=== PATIENT | female | born 1950 | race Caucasian/White ===

== ENCOUNTER 2020-10-09 09:36 | Outpatient (REF) | payer MEDICARE, SELFPAY ==
--- NOTE | 2020-10-09 16:10 | MHC.AU.AHA ---
Adult Audiological Evaluation Date of Visit: 10/09/20 Reason for Appointment: Audiological re-evaluation due to concern for decreased hearing. Patient reports that she's having more difficulty hearing and understanding speech. She often asks for repetition and notes that her family gets frustrated when she doesn't hear them. She was previously seen here in 2015 and diagnosed with hearing loss bilaterally. She was issued binaural hearing aids, and she stated that she wore then for a while, but hasn't worn them in several years. She notes that they did not work well for her and she found them bothersome. She is interested in pursuing new hearing aids. [place] [facility] [place] Mild dropping to severe sensorineural hearing loss in both ears. 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[employer] Model: [employer]o V50-10 Serial Number: [id number] Battery Size: 10 Warranty: Dispensed By: [facility] Date of Fittin10/17/2014 Otoscopy: Right Ear: Unremarkable Left Ear: Unremarkable Tympanometry: Tympanometry performed due to: To assess integrity of the middle ear system Right Ear: Normal Middle Ear System (Type A) Left Ear: Normal Middle Ear System (Type A) Hearing Evaluation: Transducer(s) Used: Insert Earphones, Bone Conduction Method: Conventional Audiometry Stimuli Used: Pure Tones Right Ear: Description of Hearing: Moderate sloping to severe sensorineural hearing loss from 250-8000 Hz. Left Ear: Description of Hearing: Mild sloping to moderately-severe sensorineural hearing loss from 250-8000 Hz. Speech Recognition Threshold (SRT): Method Used: Monitored Live Voice Stimuli Used: Spondee Words Right Ear: 45 dBHL Left Ear: 45 dBHL Word Discrimination: Method: Recorded Lists Word Lists Used: NU-6 Right Ear: 80% at 85 dBHL Left Ear: 96% at 85 dBHL Comparison: Compared to the most recent evaluation: Thresholds have decreased bilaterally. Recommendations: Audiological re-evaluation in one year. Trial with amplification is recommended. Discussed hearing aid benefits and process of using her insurance benefits. Advised her that we are not in her health insurance company's network for hearing aids. Recommended that she contact her health insurance company to find out where she can use her benefits. She was welcomed to return to further discuss hearing aids if she decides to pay out of pocket or if her insurance company offers a reimbursement when she pays up front for hearing aids. Ms. Naylor decided to donate her previous hearing aids to our clinic today, as she states she will never use them. Diagnosis: Primary Diagnosis: H90.3 Bilateral Sensorineural Hearing Loss Services Performed: Comprehensive Audiological Evaluation (CPT 95327) Tympanometry (CPT 04616) Signature: Provider: Sheron Blankenship, CCC-A
== END 2020-10-09 09:37 | disposition home or self-care (01) ==
LOC: HO.SH 09:36
PROVIDERS: PCP Internal Medicine; Visit Provider Internal Medicine
DX: H91.90 Unspecified hearing loss, unspecified ear (principal)
CPT/HCPCS: 92557; 92567

== ENCOUNTER 2021-02-22 07:11 | Outpatient (REF) | payer MEDICARE, SELFPAY ==
[2021-02-22 11:55] LABS: Hematocrit 41.7 % (37.0-47.0); Hemoglobin 13.6 g/dl (12.0-16.0); Mean Corpuscular HGB Conc 32.6 g/dl (31.0-35.0); Mean Corpuscular Hemoglobin 30.6 pg (27.0-33.0); Mean Corpuscular Volume 93.7 fL (80.0-98.0); Platelet Count 186 X10*3/uL (160-400); Red Blood Count 4.45 X10*6/uL (4.20-5.50); Red Cell Distribution Width 13.1 % (11.0-16.0); White Blood Count 4.3 X10*3/uL (4.8-10.8)
[2021-02-22 12:21] LABS: Alanine Aminotransferase 25 U/L (0-31); Albumin Level 4.1 g/dL (3.5-5.0); Alkaline Phosphatase 80 U/L (39-117); Anion Gap 12 (12-20); Aspartate Amino Transferase 24 U/L (5-31); Bilirubin Total 0.7 mg/dL (0.0-1.0); Blood Urea Nitrogen 12 mg/dL (9-16); Calcium 9.6 mg/dL (8.4-10.2); Carbon Dioxide 27 mmol/L (22-29); Chloride 107 mmol/L (96-108); Cholesterol 162 mg/dL; Estimated Glomerular Filt Rate > 60; Glucose Fasting 100 mg/dL (60-99); HDL Cholesterol 55 mg/dL; LDL Cholesterol Calculated 88 mg/dl; Potassium 4.2 mmol/L (3.3-5.1); Sodium 142 mmol/L (135-145); Total Protein 7.3 g/dL (6.5-8.0); Triglycerides 95 mg/dL
[2021-02-28 14:36] LABS: Vitamin D 25-OH, D2 <4 ng/mL; Vitamin D 25-OH, D3 32 ng/mL; Vitamin D 25-OH, Total 32 ng/mL (30-100)
== END 2021-02-22 07:12 | disposition home or self-care (01) ==
LOC: HO.HMGCLDS 07:11
PROVIDERS: PCP Internal Medicine; Visit Provider Internal Medicine
DX: Z00.00 Encounter for general adult medical examination without abnormal findings (principal); E78.5 Hyperlipidemia, unspecified; K21.9 Gastro-esophageal reflux disease without esophagitis
CPT/HCPCS: 36415; 80053; 80061; 82306; 84443; 85027

== ENCOUNTER 2021-07-16 11:40 | Outpatient (REF) | payer MEDICARE, SELFPAY ==
--- NOTE | ~2021-07-16 | MM_ITS ---
EXAMINATION: MM SCREENING DIGITAL BREAST TOMOSYNTHESIS, BILATERAL CLINICAL INFORMATION: Screening. Asymptomatic. The lifetime risk of breast cancer based on the Tyrer-Cuzick Model is 8.5%. COMPARISON: Mammography: December 10, 2018 and September 17, 2016 TECHNIQUE: Digital breast tomosynthesis is performed in both the craniocaudal and mediolateral oblique views along with computer-aided detection (CAD). Synthesized 2D images are generated from the tomosynthesis. FINDINGS: The breasts are heterogeneously dense, which may obscure small masses (ACR BI-RADS breast composition Category c). There are no significant masses, abnormal calcifications, or other abnormalities. MM/MM tomosynthesis screening BI IMPRESSION: There are no significant changes from prior study. ASSESSMENT: BI-RADS 1: Negative RECOMMENDATION: Routine annual mammography screening. This patient's information was entered into a reminder system with a target due date for their next mammogram.
== END 2021-07-16 11:41 | disposition home or self-care (01) ==
LOC: HO.MAMMO 11:40
PROVIDERS: PCP Internal Medicine; Visit Provider Internal Medicine
DX: Z12.31 Encounter for screening mammogram for malignant neoplasm of breast (principal)
CPT/HCPCS: 77063; 77067

== ENCOUNTER 2022-03-04 08:04 | Outpatient (REF) | payer MEDICARE, SELFPAY ==
[2022-03-04 11:40] LABS: MANUAL DIFF FLAG NO
[2022-03-04 11:57] LABS: Basophils Absolute Auto 0.1 X10*3/uL (0.0-0.2); Basophils Percent Auto 1.1 % (0-2); Eosinophils Absolute Auto 0.2 X10*3/uL (0.0-0.4); Hematocrit 41.6 % (37.0-47.0); Hemoglobin 13.4 g/dl (12.0-16.0); Imm Gran Abs Auto 0.02 X10*3/uL (0.00-0.03); Imm Gran Pct Auto 0.4 % (0.0-0.4); Lymphocytes Percent Auto 21.1 % (20-40); Mean Corpuscular HGB Conc 32.2 g/dl (31.0-35.0); Mean Corpuscular Hemoglobin 29.9 pg (27.0-33.0); Mean Corpuscular Volume 92.9 fL (80.0-98.0); Mean Platelet Volume 12.6 fL (9.4-12.3); Monocytes Absolute Auto 0.3 X10*3/uL (0.1-1.2); Monocytes Percent Auto 6.8 % (2-11); Neutrophils Absolute Auto 3.2 x10*3/uL (2.0-8.3); Neutrophils Percent Auto 66.6 % (45-73); Platelet Count 191 X10*3/uL (160-400); Red Blood Count 4.48 X10*6/uL (4.20-5.50); White Blood Count 4.7 X10*3/uL (4.8-10.8)
[2022-03-04 12:36] LABS: Alanine Aminotransferase 38 U/L (0-31); Albumin Level 4.1 g/dL (3.5-5.0); Alkaline Phosphatase 99 U/L (39-117); Anion Gap 12 (12-20); Aspartate Amino Transferase 34 U/L (5-31); Bilirubin Total 0.4 mg/dL (0.0-1.0); Blood Urea Nitrogen 12 mg/dL (9-16); Calcium 9.1 mg/dL (8.4-10.2); Carbon Dioxide 26 mmol/L (22-29); Chloride 108 mmol/L (96-108); Cholesterol 241 mg/dL; Estimated Glomerular Filt Rate > 60; Glucose Fasting 95 mg/dL (60-99); HDL Cholesterol 59 mg/dL; LDL Cholesterol Calculated 158 mg/dl; Sodium 142 mmol/L (135-145); Triglycerides 122 mg/dL
[2022-03-04 12:42] LABS: TSH reflex Free T4 2.23 uIU/mL (0.32-4.0); Vitamin D 25-OH Total 34.8 ng/mL (>30)
== END 2022-03-04 08:05 | disposition home or self-care (01) ==
LOC: HO.HMGCLDS 08:04
PROVIDERS: PCP Internal Medicine; Visit Provider Internal Medicine
DX: Z00.00 Encounter for general adult medical examination without abnormal findings (principal); E78.5 Hyperlipidemia, unspecified
CPT/HCPCS: 36415; 80053; 80061; 82306; 84443; 85025

== ENCOUNTER 2022-05-27 07:50 | Outpatient (REF) | payer MEDICARE, SELFPAY ==
[2022-05-27 12:27] LABS: Alanine Aminotransferase 27 U/L (0-31); Albumin Level 4.3 g/dL (3.5-5.0); Alkaline Phosphatase 78 U/L (39-117); Anion Gap 13 (12-20); Aspartate Amino Transferase 24 U/L (5-31); Bilirubin Total 0.7 mg/dL (0.0-1.0); Blood Urea Nitrogen 15 mg/dL (9-16); Calcium 9.3 mg/dL (8.4-10.2); Carbon Dioxide 26 mmol/L (22-29); Chloride 108 mmol/L (96-108); Cholesterol 160 mg/dL; Estimated Glomerular Filt Rate > 60; Glucose Fasting 101 mg/dL (60-99); HDL Cholesterol 55 mg/dL; LDL Cholesterol Calculated 86 mg/dl; Potassium 4.3 mmol/L (3.3-5.1); Sodium 143 mmol/L (135-145); Triglycerides 98 mg/dL
== END 2022-05-27 07:51 | disposition home or self-care (01) ==
LOC: HO.HMGCLDS 07:50
PROVIDERS: PCP Internal Medicine; Visit Provider Internal Medicine
DX: E78.5 Hyperlipidemia, unspecified (principal)
CPT/HCPCS: 36415; 80053; 80061

== ENCOUNTER 2022-07-31 10:50 | Outpatient (REF) | payer MEDICARE, SELFPAY ==
--- NOTE | ~2022-07-31 | MM_ITS ---
EXAMINATION: MM SCREENING DIGITAL BREAST TOMOSYNTHESIS, BILATERAL CLINICAL INFORMATION: Screening. Asymptomatic. Family history breast cancer, sister. The lifetime risk of breast cancer based on the Tyrer-Cuzick Model is 7%. COMPARISON: Mammography: 07/16/2021; outside exams 12/10/2018, 09/17/2016 ([place]) TECHNIQUE: Digital breast tomosynthesis is performed in both the craniocaudal and mediolateral oblique views along with computer-aided detection (CAD). Synthesized 2D images are generated from the tomosynthesis. FINDINGS: The breasts are heterogeneously dense, which may obscure small masses (ACR BI-RADS breast composition Category c). Breast tissue composition borders on average fibroglandular. There are no significant masses, abnormal calcifications, or other abnormalities. Parenchymal pattern is similar to prior studies. There is no developing density or architectural abnormality. There is biopsy clip marker central upper outer left breast. The axilla and skin contours are unremarkable. No significant changes. MM/MM tomosynthesis screening BI IMPRESSION: No mammographic evidence of malignancy. ASSESSMENT: BI-RADS 1: Negative RECOMMENDATION: Routine annual mammography screening. This patient's information was entered into a reminder system with a target due date for their next mammogram.
== END 2022-07-31 10:51 | disposition home or self-care (01) ==
LOC: HO.MAMMO 10:50
PROVIDERS: PCP Internal Medicine; Visit Provider Internal Medicine
DX: Z12.31 Encounter for screening mammogram for malignant neoplasm of breast (principal)
CPT/HCPCS: 77063; 77067

== ENCOUNTER 2022-12-01 09:43 | Outpatient (AMB) | payer MEDICARE, SELFPAY ==
[2022-12-01 10:55] VITALS: BP 118/60; PULSE 75; TEMP 36.2; O2SAT 96; BMI 23.1
--- NOTE | 2022-12-01 10:55 | AM.OFFWIN_ITS ---
Intake Vital Signs 12/01/22 10:55 Height 5 ft 5 in Weight 139 lb BMI 23.1 BP 118/60 Blood Pressure Location Rt brachial Position Sitting Pulse 75 Pulse Source Pulse Oximeter Temp 97.2 F Temp Source Temporal Artery Scan Pulse Oximetry (%) 96 Oxygen Delivery Method Room Air Intake Visit Reasons: EP, head congestion (masked) Intake Note: pt is here for c/o head congestion Patient Tobacco Use Status: Never used Tobacco Allergies Sulfa (Sulfonamide Antibiotics) Allergy (Intermediate, Verified 12/01/22 10:56) rash/hives Medication List - Last Reconciled 12/01/22 by Celestino Escalante MD atorvastatin 20 mg PO DAILY colestipol 1 g PO DAILY lorazepam 0.5 mg PO DAILY PRN omeprazole 20 mg PO DAILY Do you need a note to return to daycare/school/sports/work: Yes HPI EP, head congestion (masked) HPI Details Patient presents for a sick visit. Reporting symptoms of sinus congestion, sore throat and difficulty swallowing. Low-grade fever. No family member is sick. No recent travel. Patient reports symptoms of malaise and fatigue. [facility] Medical History (Updated 02/25/22 @ 08:41 by Rossana Flower MD) GERD (gastroesophageal reflux disease) Hyperlipidemia Annual physical exam Dysplastic nevi Surgical History Hx of cholecystectomy Social History Household Members Other:: , retired, exercise daily, well balanced, Housing: Apartment Patient Tobacco Use Status: Never used Tobacco e-Cigarette/Vaping Use: Never Used Second Hand Smoke Exposure: No Current occupational status: retired Cognitive needs: No Hearing needs: Yes Vision needs: Yes Physical Exam Vital Signs: Last Vital Signs Temp 97.2 F 12/01/22 10:55 Pulse 75 12/01/22 10:55 BP 118/60 12/01/22 10:55 Pulse Ox 96 12/01/22 10:55 Oxygen Delivery Method Room Air 12/01/22 10:55 BMI result Body Mass Index 23.1 Const General: cooperative and healthy appearing Nutritional Appearance: well nourished Orientation/consciousness: patient oriented x3 Limitations: no limitations HEENT Head: Yes normal to inspection Eyes General: appearance normal, both eyes and all related structures Neck Neck: Yes normal visual inspection Chest Chest palpation & inspection: normal palpation of entire chest wall Resp Effort & Inspection: normal respiratory effort Neuro General: patient oriented x3 Assessment & Plan Assessment & Plan (1) Upper respiratory tract infection: Code(s): J06.9 - Acute upper respiratory infection, unspecified Plan: Antibiotics ordered. Increase fluid intake. Tylenol for aches and pains. If symptoms worsen, follow-up here for a recheck. Coding Level of Care Code Est Pt Level 3 (24267) Diagnoses Upper respiratory tract infection J06.9
== END 2022-12-01 11:47 | disposition home or self-care (01) ==
PROVIDERS: PCP Internal Medicine; Visit Provider Internal Medicine
DX: J06.9 Acute upper respiratory infection, unspecified (principal)
CPT/HCPCS: 99213

== ENCOUNTER 2022-12-11 11:36 | Outpatient (AMB) | payer MEDICARE, SELFPAY ==
--- NOTE | 2022-12-11 11:40 | MHC.PC.OV ---
Vital Signs 12/11/22 11:41 Height 5 ft 5 in Weight 140 lb BMI 23.3 BP 136/70 Blood Pressure Location Lt brachial Position Sitting Pulse 69 Pulse Source Pulse Oximeter Pulse Oximetry (%) 96 Oxygen Delivery Method Room Air Intake Visit Reasons: Followup ear blocked Intake Note: Pt is here today for a sick visit. Pt c/o noise in her L ear and feels like she has fluid in it. Pt also states that she would like doctor to look at her spots on her face. Allergies Sulfa (Sulfonamide Antibiotics) Allergy (Intermediate, Verified 12/11/22 11:43) rash/hives Medication List - Last Reconciled 12/11/22 by Rossnaa Flower MD atorvastatin 20 mg PO DAILY colestipol 1 g PO DAILY lorazepam 0.5 mg PO DAILY PRN omeprazole 20 mg PO DAILY Tobacco use date assessed: 02/25/22 Dental Screening Dental Screen Date: 12/11/22 Did you have a dental visit in the last 12 months?: Yes Did you have a dental problem in the last 6 months where you did not have access to dental care?: No Was dental information given to patient?: Patient has dentist HPI Followup ear blocked HPI Details Pt c/o persistent L ear blocked and sinus congestion for 4 weeks. Pt took Z irish last week without relief. Patient denies fever chills or cough facial pain. She tried antihistamine for 3 days without improvement. [facility] Medical History (Updated 12/11/22 @ 12:21 by Rossana Flower MD) GERD (gastroesophageal reflux disease) Hyperlipidemia Annual physical exam Dysplastic nevi Surgical History Hx of cholecystectomy Social History Household Members Other:: , retired, exercise daily, well balanced, Housing: Apartment Patient Tobacco Use Status: Never used Tobacco e-Cigarette/Vaping Use: Never Used Second Hand Smoke Exposure: No Current occupational status: retired Cognitive needs: No Hearing needs: Yes Vision needs: Yes Questionnaire Thrive Questionnaire Date Thrive assessed: 02/25/22 GEMA-7 AMB Questionnaire GEMA-7 Date GEMA - 7 assessed: 02/25/22 Source: Developed by Drs. Isidro Chaudhari, Lucia BJez Rowe and colleagues, with an educational krystina from [employer]. Review of Systems Const All systems reviewed & are unremarkable except as noted in HPI and below Eyes Reports no additional complaints ENT Reports no additional complaints Card Reports no additional complaints Resp Reports no additional complaints GI Reports no additional complaints Physical exam (Primary Care) Vital Signs: Last Vital Signs Pulse 69 12/11/22 11:41 BP 136/70 12/11/22 11:41 Pulse Ox 96 12/11/22 11:41 Oxygen Delivery Method Room Air 12/11/22 11:41 BMI result Body Mass Index 23.3 Tobacco/Smoking Status: Tobacco use Status Tobacco use date assessed 02/25/22 12/11/22 11:47 Patient Tobacco Use Status Never used Tobacco 12/11/22 11:47 e-Cigarette/Vaping Use Never Used 12/11/22 11:47 Thrive Assessment: Date of Thrive Assessment Date Thrive assessed 02/25/22 12/11/22 11:47 Const General: no acute distress HENMT Head: Yes normal to inspection Ears: TM's normal bilaterally General nose exam: Normal external nose present, Abnormal mucous membranes and turbinates present erythematous and Nasal discharge present clear Face and sinus: Yes normal facial exam and No sinus tenderness Mouth: Normal oral and palatal mucosa present Throat: Yes postnasal drainage Eyes General: appearance normal, both eyes and all related structures Neck Neck: Yes no lymphadenopathy and Yes supple Resp Effort & Inspection: normal respiratory effort Auscultation: clear to auscultation bilaterally Cardio Rhythm: regular rhythm Heart sounds: S1 normal heart sound present and S2 normal heart sound present Assessment and Plan Assessment & Plan (1) Hyperlipidemia: Comment: Continue statin Code(s): E78.5 - Hyperlipidemia, unspecified (2) Annual physical exam: Code(s): Z00.00 - Encounter for general adult medical examination without abnormal findings (3) Serous otitis media: Code(s): H65.90 - Unspecified nonsuppurative otitis media, unspecified ear Plan: Patient was advised to restart antihistamine, use saline nasal spray and prednisone 20 mg for 5 days is prescribed Orders: Orders Comprehensive [place]. Panel Fast 3 Months E78.5 - Hyperlipidemia, unspecified, Z00.00 - Encounter for general adult medical examination without abnormal findings Lipid Panel 3 Months E78.5 - Hyperlipidemia, unspecified, Z00.00 - Encounter for general adult medical examination without abnormal findings TSH reflex Free T4 3 Months E78.5 - Hyperlipidemia, unspecified, Z00.00 - Encounter for general adult medical examination without abnormal findings Complete Blood Count Auto Diff 3 Months E78.5 - Hyperlipidemia, unspecified, Z00.00 - Encounter for general adult medical examination without abnormal findings Medications: New prednisone 20 mg PO DAILY 5 tabs 0RF Refilled lorazepam 0.5 mg PO DAILY PRN 10 tabs 0RF anxiety Coding Level of Care Code Est Pt Level 3 (74320) Diagnoses Hyperlipidemia E78.5 Annual physical exam Z00.00 Serous otitis media H65.90
[2022-12-11 11:41] VITALS: BP 136/70; PULSE 69; O2SAT 96; BMI 23.3
== END 2022-12-11 12:25 | disposition home or self-care (01) ==
PROVIDERS: PCP Internal Medicine; Visit Provider Internal Medicine
DX: E78.5 Hyperlipidemia, unspecified (principal); Z00.00 Encounter for general adult medical examination without abnormal findings; H65.90 Unspecified nonsuppurative otitis media, unspecified ear
CPT/HCPCS: 99213

== ENCOUNTER 2023-02-10 07:27 | Outpatient (REF) | payer MEDICARE, SELFPAY ==
[2023-02-10 11:21] LABS: MANUAL DIFF FLAG NO
[2023-02-10 11:23] LABS: Basophils Absolute Auto 0.1 X10*3/uL (0.0-0.2); Basophils Percent Auto 1.1 % (0-2); Eosinophils Absolute Auto 0.1 X10*3/uL (0.0-0.4); Eosinophils Percent Auto 2.2 % (0-4); Hematocrit 41.2 % (37.0-47.0); Hemoglobin 13.4 g/dl (12.0-16.0); Imm Gran Abs Auto 0.01 X10*3/uL (0.00-0.03); Imm Gran Pct Auto 0.2 % (0.0-0.4); Lymphocytes Absolute Auto 1.4 X10*3/uL (1.2-4.9); Lymphocytes Percent Auto 31.1 % (20-40); Mean Corpuscular HGB Conc 32.5 g/dl (31.0-35.0); Mean Corpuscular Hemoglobin 30.5 pg (27.0-33.0); Mean Corpuscular Volume 93.8 fL (80.0-98.0); Mean Platelet Volume 12.8 fL (9.4-12.3); Monocytes Absolute Auto 0.4 X10*3/uL (0.1-1.2); Neutrophils Absolute Auto 2.6 x10*3/uL (2.0-8.3); Neutrophils Percent Auto 56.4 % (45-73); Platelet Count 193 X10*3/uL (160-400); Red Blood Count 4.39 X10*6/uL (4.20-5.50); Red Cell Distribution Width 13.7 % (11.0-16.0); White Blood Count 4.6 X10*3/uL (4.8-10.8)
[2023-02-10 12:29] LABS: Alanine Aminotransferase 30 U/L (0-31); Albumin Level 4.1 g/dL (3.5-5.0); Alkaline Phosphatase 69 U/L (39-117); Anion Gap 13 (12-20); Aspartate Amino Transferase 25 U/L (5-31); Bilirubin Total 0.4 mg/dL (0.0-1.0); Blood Urea Nitrogen 15 mg/dL (9-16); Calcium 9.1 mg/dL (8.4-10.2); Carbon Dioxide 26 mmol/L (22-29); Chloride 108 mmol/L (96-108); Cholesterol 156 mg/dL (<200); Estimated Glomerular Filt Rate > 60; Glucose Fasting 104 mg/dL (60-99); HDL Cholesterol 59 mg/dL (>40); LDL Cholesterol Calculated 76 mg/dL (<100); Potassium 3.9 mmol/L (3.3-5.1); Sodium 143 mmol/L (135-145); Total Protein 7.1 g/dL (6.5-8.0); Triglycerides 106 mg/dL (<150)
[2023-02-10 12:36] LABS: TSH reflex Free T4 2.55 uIU/mL (0.32-4.0)
== END 2023-02-10 07:28 | disposition home or self-care (01) ==
LOC: HO.HMGCLDS 07:27
PROVIDERS: PCP Internal Medicine; Visit Provider Internal Medicine
DX: Z00.00 Encounter for general adult medical examination without abnormal findings (principal); E78.5 Hyperlipidemia, unspecified
CPT/HCPCS: 36415; 80053; 80061; 84443; 85025

== ENCOUNTER 2023-02-26 08:57 | Outpatient (AMB) | payer MEDICARE, SELFPAY ==
[2023-02-26 09:05] VITALS: BP 112/66; PULSE 64; O2SAT 98; BMI 23.3
--- NOTE | 2023-02-26 09:05 | MHC.PC.OV ---
Vital Signs 02/26/23 09:05 Height 5 ft 5 in Weight 140 lb BMI 23.3 BP 112/66 Blood Pressure Location Lt brachial Position Sitting Pulse 64 Pulse Source Pulse Oximeter Pulse Oximetry (%) 98 Oxygen Delivery Method Room Air Intake Visit Reasons: Annual PE Intake Note: Pt is here today for PE. Allergies Sulfa (Sulfonamide Antibiotics) Allergy (Intermediate, Verified 02/26/23 09:06) rash/hives Medication List - Last Reconciled 02/26/23 by Rossana Flower MD atorvastatin 20 mg PO DAILY colestipol 1 g PO DAILY lorazepam 0.5 mg PO DAILY PRN omeprazole 20 mg PO DAILY prednisone 20 mg PO DAILY Tobacco use date assessed: 02/26/23 Fall risk assessment: No Falls in past year Last assessed Fall Risk: 02/26/23 Dental Screening Dental Screen Date: 02/26/23 Did you have a dental visit in the last 12 months?: Yes Did you have a dental problem in the last 6 months where you did not have access to dental care?: No Was dental information given to patient?: Patient has dentist HPI Annual PE HPI Details Pt presents for PE. PFSH Medical History GERD (gastroesophageal reflux disease) Hyperlipidemia Annual physical exam Dysplastic nevi Surgical History Hx of cholecystectomy Social History Household Members Other:: , retired, exercise daily, well balanced, Housing: Apartment Patient Tobacco Use Status: Never used Tobacco e-Cigarette/Vaping Use: Never Used Second Hand Smoke Exposure: No Current occupational status: retired Cognitive needs: No Hearing needs: Yes Vision needs: Yes Questionnaire PHQ-9 Over the last 2 weeks, how often have you been bothered by any of the following problems? 1. Little interest or pleasure in doing things: not at all 2. Feeling down, depressed, or hopeless: not at all 3. Trouble falling or staying asleep, or sleeping too much: several days 4. Feeling tired or having little energy: several days 5. Poor appetite or overeating: not at all 6. Feeling bad about yourself - or that you are a failure or have let yourself or your family down: not at all 7. Trouble concentrating on things, such as reading the newspaper or watching television: not at all 8. Moving or speaking so slowly that other people could have noticed. Or the opposite - being so fidgety or restless that you have been moving around a lot more than usual: not at all 9. Thoughts that you would be better off or of hurting yourself in some way: not at all Total score: 2 Depression Screening Interpretation: Negative Depression Screening Done: Yes Source: Developed by Drs. Isidro Chaudhari, Lucia Burton, Jez Pan and colleagues, with an educational krystina from [employer]. Thrive Questionnaire Date Thrive assessed: 02/26/23 I am a: Patient What is your living situation today?: I have a steady place to live Within the past 12 months, did the food you bought not last and you didn't have the money to get more?: Never true Within the past 12 months, did you worry whether your food would run out before you got money to buy more?: Never true Do you have trouble paying for medicines?: No Do you have trouble getting transportation to medical appointments?: No Do you have trouble paying your heating and electricity bill?: No Do you have trouble taking care of your child, family member or friend?: No Do you have trouble with day-to-day activities such as bathing, preparing meals, shopping, managing finances, etc.?: No Are you currently unemployed and looking for a job?: No Are you interested in more education?: No Please select the resources that you would like help with: None AUDIT C Alcohol Use Questionnaire (AUDIT-C) 1. How often do you have a drink containing alcohol?: 2-4 times a month 2. How many drinks containing alcohol do you have on a typical day when you are drinking?: 1 or 2 3. How often do you have six or more drinks on one occasion?: Never Total Score: 2 GEMA-7 AMB Questionnaire GEMA-7 Date GEMA - 7 assessed: 02/26/23 Feeling nervous, anxious, or on edge: 0 = Not at all Not being able to stop or control worryin = Not at all Worrying too much about different things: 0 = Not at all Trouble relaxin = Not at all Being so restless that it is hard to sit still: 0 = Not at all Becoming easily annoyed or irritable: 0 = Not at all Feeling afraid as if something awful might happen: 0 = Not at all Total GEMA-7 score (0-4 normal; 5-9 mild; 10-14 moderate; 15-21 severe): 0 Source: Developed by Drs. Isidro Chaudhari, Lucia Burton, Jez Pan and colleagues, with an educational krystina from [employer]. Review of Systems Const All systems reviewed & are unremarkable except as noted in HPI and below Reports no additional complaints Eyes Reports no additional complaints ENT Reports no additional complaints Card Reports no additional complaints Resp Reports no additional complaints GI Reports no additional complaints Reports no additional complaints Physical exam (Primary Care) Vital Signs: Last Vital Signs Pulse 64 02/26/23 09:05 BP 112/66 02/26/23 09:05 Pulse Ox 98 02/26/23 09:05 Oxygen Delivery Method Room Air 02/26/23 09:05 BMI result Body Mass Index 23.3 Tobacco/Smoking Status: Tobacco use Status Tobacco use date assessed 02/26/23 02/26/23 09:10 Patient Tobacco Use Status Never used Tobacco 02/26/23 09:10 e-Cigarette/Vaping Use Never Used 02/26/23 09:10 PHQ-9: PHQ-9 Score PHQ-9: Total score 2 02/26/23 09:11 Depression Screening Interpretation: Negative Thrive Assessment: Date of Thrive Assessment Date Thrive assessed 02/26/23 02/26/23 09:11 Const General: no acute distress HENMT Head: Yes normal to inspection Ears: hearing grossly normal bilaterally Face and sinus: Yes normal facial exam Mouth: Normal oral and palatal mucosa present Throat: Yes posterior oropharynx normal Eyes General: appearance normal, both eyes and all related structures Neck Neck: Yes no lymphadenopathy and Yes supple Resp Effort & Inspection: normal respiratory effort Auscultation: clear to auscultation bilaterally Cardio Rhythm: regular rhythm Heart sounds: S1 normal heart sound present and S2 normal heart sound present GI Inspection: Yes normal to inspection Palpation (GI): Soft to palpation Percussion: Yes normal to percussion Auscultation: normal bowel sounds Assessment and Plan Assessment & Plan (1) Postmenopausal: Code(s): Z78.0 - Asymptomatic menopausal state Plan: check DEXA (2) Mammogram declined: Comment: 03/03 Code(s): Z53.20 - Procedure and treatment not carried out because of patient's decision for unspecified reasons (3) Hyperlipidemia: Comment: Continue statin Code(s): E78.5 - Hyperlipidemia, unspecified Plan: CONTINUE CURRENT MEDICATIONS AND LOW-CHOLESTEROL DIET Orders: Orders XR DEXA axial skeleton Today Z78.0 - Asymptomatic menopausal state Medications: Discontinued prednisone Discontinued Reason: Duplicate 20 mg PO DAILY 5 tabs 0RF Coding Level of Care Code Est Pt Prev Care >65y(96943) Diagnoses Postmenopausal Z78.0 Mammogram declined Z53.20 Hyperlipidemia E78.5
== END 2023-02-26 10:09 | disposition home or self-care (01) ==
PROVIDERS: PCP Internal Medicine; Visit Provider Internal Medicine
DX: Z00.00 Encounter for general adult medical examination without abnormal findings (principal); Z78.0 Asymptomatic menopausal state; Z53.20 Procedure and treatment not carried out because of patient's decision for unspecified reasons; E78.5 Hyperlipidemia, unspecified
CPT/HCPCS: 99397

== ENCOUNTER 2023-03-12 09:53 | Outpatient (REF) | payer MEDICARE, SELFPAY ==
--- NOTE | ~2023-03-12 | MM_ITS ---
EXAMINATION: BONE DENSITOMETRY CLINICAL INDICATION: Asymptomatic menopausal state. COMPARISON: This is the patient's baseline examination. TECHNIQUE: Using a [employer] DXA System (software version: 13.1) manufactured by [employer], dual-energy x-ray absorptiometry was performed of the lumbar spine and left hip. The images are of good technical quality. Summary results are attached. FINDINGS: LEFT FEMUR, NECK: BMD 0.716 g/cm2, Z-score -0.5, T-score -2.3, osteopenia. LEFT FEMUR, TOTAL: BMD 0.749 g/cm2, Z-score -0.4, T-score -2.1, osteopenia. AP SPINE L1-L4: BMD 0.971 g/cm2, Z-score 0.0, T-score -1.7, osteopenia. IDENTIFIED RISK FACTORS: Menopause. HISTORY OF FRACTURE: None listed. MEDICATIONS: Vitamin D. MM/XR DEXA axial skeleton IMPRESSION: 1. DIAGNOSIS: Osteopenia based on the lowest T-score value of -2.3 in the femoral neck applying World Health Organization criteria. 2. 10-YEAR FRACTURE RISK PREDICTION, FRAX: Major osteoporotic fracture (clinical spine, forearm, hip or shoulder) 13.9%. Hip fracture 3.7%. 3. Treatment Recommendations: NOF guidelines recommend consideration for treatment in postmenopausal women and men age 50 and older presenting with the following: -A hip or vertebral (clinical or morphometric) fracture. -T-score less than or equal to -2.5 at the femoral neck or spine after appropriate evaluation to exclude secondary causes. -Low bone mass at the hip or spine and a 10-year fracture probability by FRAX of greater than or equal to 3% for hip fracture or greater than or equal to 20% for major osteoporotic fracture based on the [place] adapted WHO algorithm. 4. Other Recommendations: All treatment decisions require clinical judgment and consideration of individual patient factors, including patient preferences, comorbidities, previous drug use, risk factors not captured in the FRAX model (e.g. frailty, falls, vitamin D deficiency, increased bone turnover, interval significant decline in bone density) and possible under or overestimation of fracture risk by FRAX. Additional medical evaluation for secondary cause of low bone mineral density may be appropriate. FUTURE SCAN RECOMMENDATION: People with diagnosed cases of osteoporosis or at high risk for fracture should have regular bone mineral density tests. For patients eligible for Medicare, routine testing is allowed once every 2 years. The testing frequency can be increased to one year for patients who have rapidly progressing disease, those who are receiving or discontinuing medical therapy to restore bone mass, or have additional risk factors.
== END 2023-03-12 09:54 | disposition home or self-care (01) ==
LOC: HO.MAMMO 09:53
PROVIDERS: PCP Internal Medicine; Visit Provider Internal Medicine
DX: Z13.820 Encounter for screening for osteoporosis (principal); Z78.0 Asymptomatic menopausal state
CPT/HCPCS: 77080

== ENCOUNTER 2024-02-22 07:26 | Outpatient (REF) | payer MEDICARE, SELFPAY ==
[2024-02-22 09:58] LABS: MANUAL DIFF FLAG NO
[2024-02-22 10:02] LABS: Basophils Absolute Auto 0.1 X10*3/uL (0.0-0.2); Eosinophils Absolute Auto 0.1 X10*3/uL (0.0-0.4); Eosinophils Percent Auto 1.2 % (0-4); Hematocrit 41.2 % (37.0-47.0); Hemoglobin 13.3 g/dl (12.0-16.0); Imm Gran Abs Auto 0.01 X10*3/uL (0.00-0.03); Imm Gran Pct Auto 0.2 % (0.0-0.4); Lymphocytes Absolute Auto 1.2 X10*3/uL (1.2-4.9); Lymphocytes Percent Auto 22.2 % (20-40); Mean Corpuscular HGB Conc 32.3 g/dl (31.0-35.0); Mean Corpuscular Hemoglobin 29.7 pg (27.0-33.0); Mean Platelet Volume 12.9 fL (9.4-12.3); Monocytes Absolute Auto 0.4 X10*3/uL (0.1-1.2); Monocytes Percent Auto 7.7 % (2-11); Neutrophils Absolute Auto 3.5 x10*3/uL (2.0-8.3); Neutrophils Percent Auto 67.7 % (45-73); Platelet Count 169 X10*3/uL (160-400); Red Blood Count 4.48 X10*6/uL (4.20-5.50); Red Cell Distribution Width 13.2 % (11.0-16.0); White Blood Count 5.2 X10*3/uL (4.8-10.8)
[2024-02-22 10:36] LABS: Alanine Aminotransferase 36 U/L (0-31); Albumin Level 4.1 g/dL (3.5-5.0); Alkaline Phosphatase 78 U/L (39-117); Anion Gap 10 (12-20); Aspartate Amino Transferase 29 U/L (5-31); Bilirubin Total 0.6 mg/dL (0.0-1.0); Blood Urea Nitrogen 16 mg/dL (9-16); Calcium 9.2 mg/dL (8.4-10.2); Carbon Dioxide 27 mmol/L (22-29); Chloride 108 mmol/L (96-108); Cholesterol 161 mg/dL (<200); Estimated Glomerular Filt Rate > 60; Glucose Fasting 99 mg/dL (60-99); HDL Cholesterol 57 mg/dL (>40); LDL Cholesterol Calculated 84 mg/dL (<100); Potassium 3.9 mmol/L (3.3-5.1); Sodium 141 mmol/L (135-145); Triglycerides 103 mg/dL (<150)
[2024-02-22 10:37] LABS: TSH reflex Free T4 1.66 uIU/mL (0.32-4.0)
== END 2024-02-22 07:27 | disposition home or self-care (01) ==
LOC: HO.HMGCLDS 07:26
PROVIDERS: PCP Internal Medicine; Visit Provider Internal Medicine
DX: Z00.00 Encounter for general adult medical examination without abnormal findings (principal); E78.5 Hyperlipidemia, unspecified
CPT/HCPCS: 36415; 80053; 80061; 83655; 84443; 85025

== ENCOUNTER 2024-03-03 09:58 | Outpatient (AMB) | payer MEDICARE, SELFPAY ==
--- NOTE | 2024-03-03 11:06 | A.OFFPC_ITS ---
Vital Signs 03/03/24 11:08 Height 5 ft 5 in Weight 136 lb BMI 22.6 BP 120/64 Blood Pressure Location Lt brachial Position Sitting Pulse 64 Pulse Source Pulse Oximeter Pulse Oximetry (%) 98 Oxygen Delivery Method Room Air Intake Visit Reasons: Annual PE - see comments Intake Note: Pt is here today for PE. Pt needs refill on her medications. Allergies Sulfa (Sulfonamide Antibiotics) Allergy (Intermediate, Verified 03/03/24 11:08) rash/hives Medication List - Last Reconciled 03/03/24 by Rossana Flower MD atorvastatin 20 mg PO DAILY colestipol 1 g PO DAILY lorazepam 0.5 mg PO DAILY PRN omeprazole 20 mg PO DAILY Tobacco use date assessed: 03/03/24 Fall risk assessment: No Falls in past year Last assessed Fall Risk: 03/03/24 Dental Screening Dental Screen Date: 03/03/24 Did you have a dental visit in the last 12 months?: Yes Did you have a dental problem in the last 6 months where you did not have access to dental care?: No Was dental information given to patient?: Patient has dentist HPI Annual PE - see comments HPI Details Patient presents for physical PFSH Medical History GERD (gastroesophageal reflux disease) Hyperlipidemia Annual physical exam Dysplastic nevi Surgical History Hx of cholecystectomy Family History Father No problems noted. Mother No problems noted. Social History Household Members Other:: , retired, exercise daily, well balanced, Housing: Apartment Patient Tobacco Use Status: Never used Tobacco e-Cigarette/Vaping Use: Never Used Second Hand Smoke Exposure: No service: No Current occupational status: retired Cognitive needs: No Hearing needs: Yes Vision needs: Yes Questionnaire PHQ-9 Over the last 2 weeks, how often have you been bothered by any of the following problems? 1. Little interest or pleasure in doing things: not at all 2. Feeling down, depressed, or hopeless: not at all 3. Trouble falling or staying asleep, or sleeping too much: not at all 4. Feeling tired or having little energy: not at all 5. Poor appetite or overeating: not at all 6. Feeling bad about yourself - or that you are a failure or have let yourself or your family down: not at all 7. Trouble concentrating on things, such as reading the newspaper or watching television: not at all 8. Moving or speaking so slowly that other people could have noticed. Or the opposite - being so fidgety or restless that you have been moving around a lot more than usual: not at all 9. Thoughts that you would be better off or of hurting yourself in some way: not at all Total score: 0 Depression Screening Interpretation: Negative Depression Screening Done: Yes 66867 - PHQ-9 Billing: Yes Source: Developed by Drs. Isidro Chaudhari, Lucia Burton, Jez Pan and colleagues, with an educational krystina from [employer]. Thrive Questionnaire Date Thrive assessed: 03/03/24 I am a: Patient What is your living situation today?: I have a steady place to live Within the past 12 months, did the food you bought not last and you didn't have the money to get more?: Sometimes True Within the past 12 months, did you worry whether your food would run out before you got money to buy more?: Sometimes True Do you have trouble paying for medicines?: No Do you have trouble getting transportation to medical appointments?: No Do you have trouble paying your heating and electricity bill?: No Do you have trouble taking care of your child, family member or friend?: No Do you have trouble with day-to-day activities such as bathing, preparing meals, shopping, managing finances, etc.?: No Are you currently unemployed and looking for a job?: No Are you interested in more education?: No Please select the resources that you would like help with: Food Currently or been in a relationship where the following occur: No concerns reported THRIVE Score: 2 AUDIT C Alcohol Use Questionnaire (AUDIT-C) 1. How often do you have a drink containing alcohol?: Monthly or less 2. How many drinks containing alcohol do you have on a typical day when you are drinking?: 1 or 2 3. How often do you have six or more drinks on one occasion?: Less than monthly Total Score: 2 GEMA-7 AMB Questionnaire GEMA-7 Date GEMA - 7 assessed: 03/03/24 Feeling nervous, anxious, or on edge: 1 = Several days Not being able to stop or control worryin = Several days Worrying too much about different things: 1 = Several days Trouble relaxin = Several days Being so restless that it is hard to sit still: 0 = Not at all Becoming easily annoyed or irritable: 1 = Several days Feeling afraid as if something awful might happen: 1 = Several days Total GEMA-7 score (0-4 normal; 5-9 mild; 10-14 moderate; 15-21 severe): 6 Source: Developed by Drs. Isidro Chaudhari, Lucia Burton, Jez Pan and colleagues, with an educational krystina from [employer]. GEMA-7 Assessment Billing GEMA-7 Assessment Tool: GEMA-7 Assessment 12048 Review of Systems Const All systems reviewed & are unremarkable except as noted in HPI and below Reports no additional complaints Eyes Reports no additional complaints ENT Reports no additional complaints Card Reports no additional complaints Resp Reports no additional complaints GI Reports no additional complaints Reports no additional complaints Physical exam (Primary Care) Vital Signs: Last Vital Signs Pulse 64 03/03/24 11:08 BP 120/64 03/03/24 11:08 Pulse Ox 98 03/03/24 11:08 Oxygen Delivery Method Room Air 03/03/24 11:08 BMI result Body Mass Index 22.6 Tobacco/Smoking Status: Tobacco use Status Tobacco use date assessed 03/03/24 03/03/24 11:12 Patient Tobacco Use Status Never used Tobacco 03/03/24 11:12 e-Cigarette/Vaping Use Never Used 03/03/24 11:12 PHQ-9: PHQ-9 Score PHQ-9: Total score 0 03/03/24 11:12 Depression Screening Interpretation: Negative Thrive Assessment: Date of Thrive Assessment Date Thrive assessed 03/03/24 03/03/24 11:12 Currently or been in a relationship where the following occur: No concerns reported Const General: no acute distress HENMT Head: Yes normal to inspection Ears: hearing grossly normal bilaterally Face and sinus: Yes normal facial exam Mouth: Normal oral and palatal mucosa present Eyes General: appearance normal, both eyes and all related structures Neck Neck: Yes no lymphadenopathy and Yes supple Resp Effort & Inspection: normal respiratory effort Auscultation: clear to auscultation bilaterally Cardio Rhythm: regular rhythm Heart sounds: S1 normal heart sound present and S2 normal heart sound present GI Inspection: Yes normal to inspection Palpation (GI): Soft to palpation Percussion: Yes normal to percussion Auscultation: normal bowel sounds Coding Level of Care Code Est Pt Prev Care >65y(65995) Diagnoses Colon cancer screening Z12.11 Annual physical exam Z00.00 Hyperlipidemia E78.5 Additional Codes GEMA-7 Assessment Billing - GEMA-7 Assessment Tool: GEMA-7 Assessment 31335 ([id number]) PHQ-9 - 34958 - PHQ-9 Billing: Yes ([id number]) Assessment & Plan Assessment & Plan (1) Colon cancer screening: Comment: 11/2021 negative Cologuard by insurance, 12/01 negative FIT Code(s): Z12.11 - Encounter for screening for malignant neoplasm of colon Category: Medical Plan: Negative colon cancer screening by insurance, patient declined colonoscopy (2) Annual physical exam: Code(s): Z00.00 - Encounter for general adult medical examination without abnormal findings Category: Medical Plan: Well-balanced diet regular physical activity discussed with the patient. She will schedule mammogram (3) Hyperlipidemia: Comment: Continue statin Code(s): E78.5 - Hyperlipidemia, unspecified Category: Medical Plan: Continue statin Orders: Orders Comprehensive [place]. Panel Fast 1 Year E55.9 - Vitamin D deficiency, unspecified, E78.5 - Hyperlipidemia, unspecified, Z00.00 - Encounter for general adult medical examination without abnormal findings Complete Blood Count Auto Diff 1 Year E55.9 - Vitamin D deficiency, unspecified, E78.5 - Hyperlipidemia, unspecified, Z00.00 - Encounter for general adult medical examination without abnormal findings Lipid Panel 1 Year E55.9 - Vitamin D deficiency, unspecified, E78.5 - Hyperlipidemia, unspecified, Z00.00 - Encounter for general adult medical examination without abnormal findings TSH reflex Free T4 1 Year E55.9 - Vitamin D deficiency, unspecified, E78.5 - Hyperlipidemia, unspecified, Z00.00 - Encounter for general adult medical examination without abnormal findings Vitamin D 25-OH Total 1 Year E55.9 - Vitamin D deficiency, unspecified, E78.5 - Hyperlipidemia, unspecified, Z00.00 - Encounter for general adult medical examination without abnormal findings Medications: Refilled colestipol 1 g PO DAILY 90 tabs 3RF lorazepam 0.5 mg PO DAILY PRN 10 tabs 0RF anxiety
[2024-03-03 11:08] VITALS: BP 120/64; PULSE 64; O2SAT 98; BMI 22.6
== END 2024-03-03 11:42 | disposition home or self-care (01) ==
PROVIDERS: PCP Internal Medicine; Visit Provider Internal Medicine
DX: Z12.11 Encounter for screening for malignant neoplasm of colon (principal); Z00.00 Encounter for general adult medical examination without abnormal findings; E78.5 Hyperlipidemia, unspecified

== ENCOUNTER → 2024-03-03 09:58 | Outpatient (BNVA) | payer MEDICARE, SELFPAY | PROVIDERS: PCP Internal Medicine; Visit Provider Internal Medicine | DX: Z00.00 Encounter for general adult medical examination without abnormal findings (principal); E78.5 Hyperlipidemia, unspecified | CPT/HCPCS: 96127; 99397 ==

== ENCOUNTER 2024-07-12 09:30 | Outpatient (AMB) | payer MEDICARE, SELFPAY ==
--- NOTE | 2024-07-12 09:45 | A.OFFPC_ITS ---
Vital Signs 07/12/24 09:49 Height 5 ft 5 in Weight 143 lb BMI 23.8 BP 124/70 Blood Pressure Location Lt brachial Position Sitting Respiration 18 Pulse 69 Pulse Source Pulse Oximeter Temp 98.1 F Temp Source Oral Pulse Oximetry (%) 98 Oxygen Delivery Method Room Air Intake Visit Reasons: Discuss anxiety, dizziness Intake Note: Pt is here today for a sick visit. Pt c/o dizziness. Allergies Sulfa (Sulfonamide Antibiotics) Allergy (Intermediate, Verified 07/12/24 09:59) rash/hives Medication List - Last Reconciled 07/12/24 by Rossana Flower MD atorvastatin 20 mg PO DAILY colestipol 1 g PO DAILY lorazepam 0.5 mg PO DAILY PRN omeprazole 20 mg PO DAILY Tobacco use date assessed: 07/12/24 Fall risk assessment: No Falls in past year Last assessed Fall Risk: 07/12/24 Dental Screening Dental Screen Date: 03/03/24 HPI Discuss anxiety, dizziness HPI Details Pt c/o increasing anxiety getting worse over the last few months. She denies depression insomnia change in appetite. Patient had an episode of lightheadedness lasting 2 minutes while in the started looking on the shelves. She denies associated chest pain shortness or breath palpitations headache, change in the vision, weakness or numbness in extremities PFSH Medical History GERD (gastroesophageal reflux disease) Hyperlipidemia Annual physical exam Dysplastic nevi Surgical History Hx of cholecystectomy Family History Father No problems noted. Mother No problems noted. Social History Household Members Other:: , retired, exercise daily, well balanced, Housing: Apartment Patient Tobacco Use Status: Never used Tobacco e-Cigarette/Vaping Use: Never Used Second Hand Smoke Exposure: No service: No Current occupational status: retired Cognitive needs: No Hearing needs: Yes Vision needs: Yes Questionnaire Thrive Questionnaire Date Thrive assessed: 02/26/24 I am a: Patient What is your living situation today?: I have a steady place to live Within the past 12 months, did the food you bought not last and you didn't have the money to get more?: Sometimes True Within the past 12 months, did you worry whether your food would run out before you got money to buy more?: Sometimes True Do you have trouble paying for medicines?: No Do you have trouble getting transportation to medical appointments?: No Do you have trouble paying your heating and electricity bill?: No Do you have trouble taking care of your child, family member or friend?: No Do you have trouble with day-to-day activities such as bathing, preparing meals, shopping, managing finances, etc.?: No Are you currently unemployed and looking for a job?: No Are you interested in more education?: No Please select the resources that you would like help with: Food Currently or been in a relationship where the following occur: No concerns reported THRIVE Score: 2 GEMA-7 AMB Questionnaire GEMA-7 Date GEMA - 7 assessed: 03/03/24 Source: Developed by Drs. Isidro Chaudhari, Lucia Burton, Jez Pan and colleagues, with an educational krystina from [employer]. Review of Systems Const All systems reviewed & are unremarkable except as noted in HPI and below Reports no additional complaints Eyes Reports no additional complaints ENT Reports no additional complaints Card Reports no additional complaints Resp Reports no additional complaints GI Reports no additional complaints Reports no additional complaints Musc Reports no additional complaints Physical exam (Primary Care) Vital Signs: Last Vital Signs Temp 98.1 F 07/12/24 09:49 Pulse 69 07/12/24 09:49 Resp 18 07/12/24 09:49 BP 124/70 07/12/24 09:49 Pulse Ox 98 07/12/24 09:49 Oxygen Delivery Method Room Air 07/12/24 09:49 BMI result Body Mass Index 23.8 Tobacco/Smoking Status: Tobacco use Status Tobacco use date assessed 07/12/24 07/12/24 10:00 Patient Tobacco Use Status Never used Tobacco 07/12/24 09:45 e-Cigarette/Vaping Use Never Used 07/12/24 09:45 Thrive Assessment: Date of Thrive Assessment Date Thrive assessed 02/26/24 07/12/24 09:45 Currently or been in a relationship where the following occur: No concerns reported Const General: no acute distress HENMT Head: Yes normal to inspection Ears: TM's normal bilaterally Face and sinus: Yes normal facial exam Eyes General: appearance normal, both eyes and all related structures Resp Effort & Inspection: normal respiratory effort Auscultation: clear to auscultation bilaterally Cardio Rhythm: regular rhythm Heart sounds: S1 normal heart sound present and S2 normal heart sound present Neuro Cranial nerves: Yes CN's II-XII intact bilaterally Gait exam (Neuro): Normal gait present Motor exam (neuro): 5/5 motor strength present throughout Coding Level of Care Code Est Pt Level 3 (89024) Diagnoses Anxiety F41.9 Assessment & Plan Assessment & Plan (1) Anxiety: Code(s): F41.9 - Anxiety disorder, unspecified Category: Medical Plan: For chronic anxiety patient was advised to start counseling. Zoloft 25 mg daily will be started. Mindfulness and relaxation techniques discussed with the patient. Follow-up in 1 month Medications: New sertraline (Zoloft) 25 mg PO DAILY 30 tabs 2RF
[2024-07-12 09:49] VITALS: BP 124/70; PULSE 69; RESP 18; TEMP 36.7; O2SAT 98; BMI 23.8
--- OUTSIDE RECORDS SUMMARY | 2024-07-12 10:36 | XMS_ITS | Data Portability ---
Author Organization [facility], , [facility] Address [address] [place] [address] Care Team Providers Care Christian Education Director Name Role Phone NETTA EVANS Primary Care Provider MEGAN TORRES Primary Care Provider Assessment No assessment recorded. Plan of Treatment Reminders Order Date Submit Date Provider Last Modified By Organization Details Last Modified Time Details Appointments None recorded. Lab H pylori iga Ab, serum 2014 015 [facility], [address] [place] [address], [id number], 5 06:01:14 CBC 2013 014 [facility], [address] [place] [address], [address], 4 14:52:01 thyroid stimulating hormone (TSH) 2013 014 [facility], [address] [place] [address], [address], 4 12:00:44 Referral gynecologis t referral - 62-year-old female with over the floor dysfunction , cystocele versus prolapsed uterus, please evaluate 2013 014 gamal [facility] [employer], [address] [place] [address], [address], 4 07:59:[address] referral - 62 yo F w/increased SOB w/exertion: ie: running & going up stairs, no HX of asthma or cardiac disease, no CP, has had PFT's done, please evalaute//a ppt August 11:00 am Pita 2013 014 gamal Lema MD, [address] [place] [address] [place], [address], 4 08:10:28 Procedures None recorded. Surgeries None recorded. Imaging x-ray, chest 2013 014 [facility] (Imaging), [address] [place] [address] , ALAYNA Hankins, [address], 4 12:25:36 Medication Orders omeprazole 20 mg capsule,del ayed release 2014 015 [employer] [address]14 ([employer] [facility]27), [address], [place], [id number], 5 18:00:27 Flonase Allergy Relief 50 mcg/actuati on nasal spray,suspe nsion 2014 015 [facility][id number], [address] [place], [place], [id number], 5 16:56:56 Pretty Allergy 180 mg tablet 2014 015 [facility] #65155, [address] [place], [place], [id number], 5 16:56:56 Estrace 0.01% (0.1 mg/gram) vaginal cream 2013 014 [employer] [address] ([employer] [facility]27), [address], [place], [id number], 4 10:25:14 Anusol-HC 25 mg rectal suppository 2013 014 [employer] 32491 ([facility] [address], [place], [id number], 10:25:14 Patient TargetsNo targets recorded. Patient Instructions Encounter Date Encounter Id Patient Instructions Last Modified By Organization Details Last Modified Time 05/02/2013 [id number] pulmonary function test* - dyspnea on exertion, increasing, please eval possible causes. 05/25/13 11:00 no prep. pt aware jdulude Not available 07/15/2013 08:05:43 06/15/2013 [id number] atrophic vaginitis: care instructions Not available 07/05/2013 00:05:03 hemorrhoids: car e instructions Not available 07/05/2013 00:05:03 Reason for Referral 62 yo F w/increased SOB w/ex ertion: ie: running & going up stairs, no HX of asthma or cardiac disease, no CP, has had PFT's done, please evalaute//appt August 11:00 am Pita Referring Physician: Megan Torres [facility], Encounter Date: 06/15/2013 62-year-old female with over the floor dysfunction, cystocele versus prolapsed uterus, please evaluate Referring Physician: Megan Torres [facility], Encounter Date: 09/14/2013 Results Created Date Observation Date Name Description Value Unit Range Abnormal Flag Note LastModifiedBy Organization Detail LastModifiedTime 05/03/19 14 05/02/2013 CBC WBC 3.5 K/? ? ?L 4.0-10 .0 low Not Available [address], [address], 05/02/2013 14:52:00 05/03/19 14 05/02/2013 CBC RBC 4.49 M/? ? ?L 3.93-5 .22 Not Available [address], [address], 05/02/2013 14:52:00 05/03/19 14 05/02/2013 CBC HGB 13.9 g/dL 11.2-1 5.7 Not Available [address], [address], 05/02/2013 14:52:00 05/03/19 14 05/02/2013 CBC HCT 41.9 % 34.1-4 4.9 Not Available [address], [address], 05/02/2013 14:52:00 05/03/19 14 05/02/2013 CBC MCV 93.3 ? ? ?L 79.4-9 4.8 Not Available [address], [address], 05/02/2013 14:52:00 05/03/19 14 05/02/2013 CBC MCH 31.0 pg 25.6-3 2.2 Not Available [address], [address], 05/02/2013 14:52:00 05/03/19 14 05/02/2013 CBC MCHC 33.2 g/dL 32.2-3 5.5 Not Available [address], [address], 05/02/2013 14:52:00 05/03/19 14 05/02/2013 CBC plt 192.0 K/? ? ?L 182.0- 369.0 Not Available [address], [address], 05/02/2013 14:52:00 05/03/19 14 05/02/2013 CBC MPV 12.4 9.4-12 .3 high Not Available [address], [address], 05/02/2013 14:52:00 05/03/19 14 05/02/2013 CBC neut% 52.7 % 34.0-7 1.1 Not Available [address], [address], 05/02/2013 14:52:00 05/03/19 14 05/02/2013 CBC neut# 1.8 1.6-6. 1 Not Available [address], [address], 05/02/2013 14:52:00 05/03/19 14 05/02/2013 CBC lymph % 32.4 % 19.3-5 1.7 Not Available [address], [address], 05/02/2013 14:52:00 05/03/19 14 05/02/2013 CBC lymph # 1.1 K/? ? ?L 1.2-3. 7 low Not Available [address], [address], 05/02/2013 14:52:00 05/03/19 14 05/02/2013 CBC mono% 8.9 % 4.7-12 .5 Not Available [address], [address], 05/02/2013 14:52:00 05/03/19 14 05/02/2013 CBC mono# 0.3 0.2-0. 4 Not Available [address], [address], 05/02/2013 14:52:00 05/03/19 14 05/02/2013 CBC eo% 4.9 % 0.7-5. 8 Not Available [address], [address], 05/02/2013 14:52:00 05/03/19 14 05/02/2013 CBC eo# 0.2 0.0-0. 4 Not Available [address], [address], 05/02/2013 14:52:00 05/03/19 14 05/02/2013 CBC baso% 1.1 % 0.1-1. 2 Not Available [address], [address], 05/02/2013 14:52:00 05/03/19 14 05/02/2013 CBC baso# 0.0 0.0-0. 1 low Not Available [address], [address], 05/02/2013 14:52:00 05/03/19 14 05/02/2013 CBC RDW-CV 12.8 % 11.7-1 4.4 Not Available [address], [address], 05/02/2013 14:52:00 05/03/19 14 05/03/2013 thyro id stimu latin g hormo ne (TSH) TSH 1.20 uIU/m L 0.50-6 .00 the ameri can colle ge of endoc rinol ogy and ameri can thyro id assoc iatio n recom mend goal TSH value s betwe en 1.0-2 .5 mIU/m L. Not Available [address], [address], 05/03/2013 12:00:43 05/04/19 14 05/10/2013 fecal globi n immun ochem ical test ifobt NEGATI VE negati ve Not Available [address], [address], 05/10/2013 14:41:24 05/05/19 14 05/10/2013 fecal globi n immun ochem ical test ifobt NEGATI VE negati ve Not Available [address], [address], 05/10/2013 14:41:27 05/06/19 14 05/10/2013 fecal globi n immun ochem ical test ifobt NEGATI VE negati ve Not Available [address], [address], 05/10/2013 14:41:28 10/27/19 15 10/26/2014 lipid panel , serum cholesterol 235 mg/dL <200 mg/dl Megan able 200-2 39 mg/dl Borde rline High >240 mg/dl High Not Available [address], [address], 10/26/2014 13:34:49 10/27/19 15 10/26/2014 lipid panel , serum triglyceride s 102 mg/dL <150 mg/dL Gisell l 150-1 99 mg/dL Borde rline High 200-4 99 mg/dL High >500 mg/dL Very High Not Available [address], [address], 10/26/2014 13:34:49 10/27/19 15 10/26/2014 lipid panel , serum direct HDL 60 mg/dL Not Available [address], [address], 10/26/2014 13:34:49 10/27/19 15 10/26/2014 LDL, direc t, serum direct LDL 152 mg/dL RISK CATEG ORY LDL GOAL _ CHD or CHD Risk Equiv alent s <100 mg/dl (10-y ear risk >20%) 2+ Risk Facto rs <130 mg/dl (10-y ear risk <= 20%) 0-1 Risk Facto r? <160 mg/dl ? Almos t all peopl e with 0-1 risk facto r have a 10 year risk <10%, thus 10 year risk asses ment in peopl e with 0-1 risk facto r is not ra zeferino. Not Available [address], [address], 10/26/2014 13:34:50 10/27/19 15 11/03/2014 H pylor i iga Ab, serum helicobacter pylori Ab (IgA), immunoblot NEGATI VE Effec tive Octob er 2014 Helic obact er(H) pylor i antib rene testi ng will no longe r be offer ed at [facility]. We are pleas ed to offer ACG and AGA recom sari d testi ng for ACTIV E infec tion with eithe r H. pylor i Stool Antig en (test code 29922 [X]) or H. pylor i Urea Breat h Test (1483 9[X] for adult patie nts and 08295 for pedia tric patie nts). For more infor rosangela weber on testi danika for ACTIV E H. pylor i infec tion, pleas e see http: //aure almarazque stdia gnost ics.c om/in sight s/61. Not Available [facility] [place] [facility] [address] [place], [place], [address], 11/03/2014 06:01:14 05/03/19 14 04/12/2013 exerc ise stres s test No observ ation record ed. [email or web address] [facility] [address] [place], [address], 05/03/2013 09:12:05 05/03/19 14 05/02/2013 x-ray , chest OBSERV ATION: PA AND LATERA L CHEST: Histor y: Shortn ess of breath No active lung or pleura l diseas e is seen. The heart and medias tinal contou rs appear normal . Thorac ic scolio sis convex right. Impres nickie: Normal chest radiog raph. Electr onical ly signed Readin g Physic rafa: Tip Loco MD [facility] (Imaging) [address] [place] [address] , ALAYNA Hankins, [address], 01/17/2015 04:00:20 05/10/19 14 04/12/2013 imagi ng/di agnos tic resul t No observ ation record ed. MAR Not Available 2013 09:42:55 05/10/19 14 04/12/2013 imagi ng/di agnos tic resul t No observ ation record ed. BARCODE Not Available 2013 13:24:29 06/15/19 14 05/25/2013 pulmo nary funct ion test* No observ ation record ed. [email or web address] Not Available 06/09 21:58:57 Result Notes None recorded. Problems Name Problem SNOMED Code Status Onset Date Resolution Date Notes Provider Name and Address Organization Details Recorded Time Allergic rhinitis 22146881 Active SAMINA Alves [address] [place] [address], [address] , [facility] 5 15:25:16 Varicose veins of lower extremity 21161913 Active 2001 Not Available [employer] 3 03:06:43 Nausea 509681882 Completed 200312/29/2012 Not Available [employer] 3 02:03:39 Abnormal findings on diagnostic imaging of breast 815341738 Active Not Available [facility] 3 03:06:43 Senile hyperkerat osis 069260957 Active Not Available [facility] 3 03:06:43 Right upper quadrant pain 520224854 Completed 200312/29/2012 Not Available [facility] 3 02:03:18 Generalize d anxiety disorder 65912553 Active 2007 Not Available [facility] 3 03:06:43 Insomnia 797258028 Active 2007 Not Available [facility] 3 03:06:43 Central hearing loss 59157958 Active 2001 Netta Evans MD [address] [place], [address] , [facility] 5 11:04:34 Pure hyperchole sterolemia 802147885 Active 2005 [facility] 5 11:26:35 Osteoarthr itis 669724545 Active 2006 Not Available [employer] 3 03:06:43 Disease of liver 203945394 Active 2003 Not Available [facility] 3 03:06:43 Mammograph y abnormal 202398055 Active 2003 Not Available [facility] 3 03:06:43 Pain of joint of hand 902041094 Completed 200112/29/2012 Not Available [facility] 3 02:02:43 On examinatio n - a rash Completed 12/29/2012 Not Available [facility] 3 02:00:45 Blood chemistry outside reference range 484334893 Completed 12/29/2012 Not Available [facility] 3 02:03:30 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 Procedures Surgical History Date Name Laterality Status Provider Name and Address Organization Details Recorded Time 4 Destruction of skin lesion completed eMgan Torres, RECYCLE COORDINATOR [address] [place], [address], [facility] 06/15/2013 17:21:33 1 Wart completed Мария Stewart, JAYDEN [address] [place], [address], [facility] 06/17/2010 16:26:17 0 Treatment and Advice completed Dante Swenson, PT [address] [place], [address], [facility] 09/14/2009 07:25:53 Imaging Results None recorded. Procedure Notes None recorded. Medical Equipment None Reported. Allergies Allergen ID Allergen Name Allergen Category Reaction Reaction Severity Criticality Documentation Date Start Date Code Code System Note Provider Name and Address Organization Details Recorded Time 19064 Substance with sulfonami de structure and antibacte rial mechanism of action (substanc e) medicatio n Not available Not available Not available 08/31/2009 07350 8003 SNOMED Not Available [facility] 1 06:05:41 Medications Name Sig Start Date Stop Date Status Note LastModified by Organization Details LastModified Time omeprazole 20 mg cpdr active Not Available Not Available N ot Available [facility] allergy 180 mg tabs active Not Available Not Available Not Available fluticasone propionate 50 mcg/act susp active Not Available Not Available Not Available nystatin 100,000 unit/gram topical ointment APPLY AA BID active Not Available Not Available No t Available lorazepam 0.5 mg tablet Take 1-2 tabs daily PRN anxiety/i nsomnia 2014 active Not Available Not Available Not Avai lable ciprofloxac in 0.3 % eye drops Instill 1 drop 4 times a day by ophthalmi c route for 5 days. 08/10 completed Not Available Not Available Not Available omeprazole 20 mg capsule,del ayed release Take 1 capsule every day by oral route for 30 days. active Not Available Not Available No t Available Anusol-HC 25 mg rectal suppository Insert 1 supposito ry twice a day by rectal route for 14 days. 06/29 completed Not Available Not Available Not Available fluticasone propionate 50 mcg/actuati on nasal spray,suspe nsion U 1 SPRAY IN THE NOSE BID active Not Available Not Available No t Available Estrace 0.01% (0.1 mg/gram) vaginal cream INSERT 1GRAM INTRAVAGI SIMÓN 2 TIMES PER WEEK active Not Available Not Available No t Available [employer] Allergy 180 mg tablet TK 1 T PO QD active Not Available Not Available No t Available Vitals Date Recorded Body height Body weight Body mass index (BMI) Heart rate Systolic blood pressure Diastolic blood pressure Provider Name and Address Organization Details Last Updated DateTime 4 165.1 cm 55094.9 20796 g 22.9 kg/m2 66 /min 120 mm[Hg] 74 mm[Hg] Hany Alvarado [facility] 4 10:24:59 Date Recorded Oxygen saturation Oxygen saturation in Arterial blood by Pulse oximetry Body weight Body mass index (BMI) Body height Body temperature Systolic blood pressure Diastolic blood pressure Provider Name and Address Organization Details Last Updated DateTime 5 96 % 96 % 33476.5 07628 g 22.2 kg/m2 165.1 cm 98.2 [degF] 110 mm[Hg] 66 mm[Hg] Lazaro Cottrell MA [facility] 5 15:06:39 Date Recorded Body height Body mass index (BMI) Body weight Heart rate Systolic blood pressure Diastolic blood pressure Provider Name and Address Organization Details Last Updated DateTime 4 165.1 cm 23 kg/m2 33408.7 4706 g 72 /min 128 mm[Hg] 80 mm[Hg] Liliana Delgadillo MA [facility] 4 16:13:55 Date Recorded Body height Body mass index (BMI) Body weight Systolic blood pressure Diastolic blood pressure Provider Name and Address Organization Details Last Updated DateTime 09/14/2013 165.1 cm 22.7 kg/m2 38460.61 0889 g 98 mm[Hg] 62 mm[Hg] Julianajustina Granados MA [facility] 4 10:27:35 Date Recorded Body weight Body height Body mass index (BMI) Heart rate Systolic blood pressure Diastolic blood pressure Provider Name and Address Organization Details Last Updated DateTime 5 75392.1 25089 g 165.1 cm 23.2 kg/m2 64 /min 102 mm[Hg] 70 mm[Hg] Sylvie Estevez LPN [facility] 5 16:48:40 Social History Question Answer Notes LastModified by Organizat ion Details LastModified Time Tobacco Smoking Status Never Smoker Not Available [facility] 12/26/2010 04:52:47 What Is Your Level Of Caffeine Consumption? Occasional 7 Information not available 12/26/2010 What Type Of Diet Are You Following? REGULAR mbarbeau Information not available 11/09/2012 Education 12 DBA_PATCH_ 11 7 Information not available 12/26/2010 How Many Days In The Past Year Have You Had A Heavy Drinking Consumption (4+ Female, 5+ Male)? 6 Information not available 10/24/2014 Live Alone Or With Others? Alone 7 Information not available 12/26/2010 Patient Has Health Care Proxy Signed And In Chart No 7 Information not available 12/26/2010 Marital Status Single [id number]_[id number] 7 Information not available 12/26/2010 Mosquito Repellent Used Routinely No 7 Information not available 12/26/2010 How Many Children Do You Have? 2 7 Information not available 12/26/2010 Seat Belts Used Routinely Yes 7 Information not available 12/26/2010 Smoke Alarm In Home Yes 7 Information not available 12/26/2010 General Stress Level Medium 7 Information not available 12/26/2010 Do You Use Sunscreen Routinely? No 7 Information not available 12/26/2010 Sex: Unknown Functional Status Question Answer Note LastModified by Organizat ion Details LastModified Time What is your level of alcohol consumption? 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 Family History Nothing Reported Notes:mother- cirhosis of li brittni father- prostate cancer sister- breast cancer- 50's, still alive, Medical History Condition Response Hyperlipidemia Y Gynecological HistoryNo gynecological history recorded. Obstetrics History GPAL:G 0 P 0 0 0 0 Immunizations Vaccine Type Date Status Note Provider Nam e and Address Organization Details Recorded Time Tdap 1 completed Not Available [facility] 02/26/2019 02:15:40 Hep B, unspecified formulation 1 completed Not Available [facility] 12/25/2010 05:20:34 Past Encounters Encounter ID Performer Location Encounter Start Date Encounter Closed Date Diagnosis/Indication Diagnosis SNOMED-CT Code Diagnosis ICD10 Code Diagnosis Note [id number] SAMINA Alves , [facility], [address] [place] [address] 07/29/2000 10:45:00 03/01/2008 02:02:29 [id number] FP TREATMENT NURSE [facility], OFFICE [address] [place] [address] 07/31/2000 14:00:00 03/01/2008 02:02:29 [id number] FP TREATMENT NURSE [facility], OFFICE [address] [place] [address] 08/31/2000 09:30:00 03/01/2008 02:02:29 [id number] Cheng Ashton MD , [facility], [address] [place] [address] 04/29/2001 11:15:00 03/01/2008 02:02:29 [id number] Annalisa Kellogg NP , [facility], [address] [place] [address] 11/12/2001 10:17:26 03/01/2008 02:02:29 [id number] JAYDEN Baptiste, [facility], [address] [place] [address] 02/07/2002 11:26:49 03/01/2008 02:02:29 [id number] MD SIM Gomez, [facility], [address] [place] [address] 06/28/2003 08:37:40 06/28/2003 12:04:40 [id number] [facility] - [address] [address] 07/07/2003 13:53:04 07/07/2003 13:53:36 [id number] [facility] Radiology , [facility] [address] [place] [address] 07/24/2003 08:40:06 07/25/2003 09:26:57 [id number] [facility] , [facility] [address] [place] [address] 08/29/2003 12:34:06 08/30/2003 12:18:43 [id number] [facility] Radiology , [address] [address] 08/29/2003 14:13:20 09/01/2003 08:21:13 [id number] [facility] - [address] [address] 10/17/2003 12:08:45 10/17/2003 13:08:57 [id number] MD SIM Gomez, [facility], [address] [place] [address] 10/17/2003 11:30:03 10/18/2003 13:14:30 [id number] [facility] , [facility] [address] [place] [address] 10/20/2003 07:18:05 10/20/2003 15:52:37 [id number] [facility] - [address] [address] 10/23/2003 09:51:08 10/23/2003 10:38:59 [id number] MD SIM Gomez, [facility], [address]ICE [address] [place] [address] 07/05/2004 14:23:11 07/05/2004 17:11:03 [id number] [facility] - [address] [address] 07/15/2005 13:16:43 07/15/2005 13:16:57 [id number] JAYDEN Baptiste, [facility], [address] [place] [address] 07/24/2005 13:23:08 03/01/2008 02:02:29 [id number] Flavia Mcgill MD , [facility], [address] [place] [address] 09/05/2005 10:02:22 09/05/2005 11:56:15 [id number] [facility] - [facility] [address] [place] [address] 09/12/2005 07:38:38 09/12/2005 07:38:42 [id number] [facility] - [address] [place] [address] 09/15/2005 12:54:04 09/15/2005 12:54:[id number] [address] 10/23/2005 13:18:47 03/01/2008 02:02:29 [id number] MD SIM Harvey, [facility], [address] [place] [address] 06/19/2006 13:25:47 06/19/2006 16:56:47 [id number] Flavia Mcgill MD , [facility], [address] [place] [address] 10/20/2006 10:11:07 10/26/2006 10:51:00 [id number] Donny Martins MD , [facility], [address] [place] [address] 11/12/2007 10:26:09 03/01/2008 02:02:29 [id number] [facility] , [facility] [address] [place] [address] 01/04/2008 11:02:21 01/05/2008 09:21:53 [id number] SAMINA Alves , [facility], [address] [place] [address] 08/31/2009 09:00:28 09/17/2009 12:00:43 [id number] [facility] Radiology , [facility] [address] [place] [address] 08/31/2009 09:48:31 09/03/2009 13:20:38 [id number] Dante Swenson , PT Physical Therapy, [facility] [address] [place] [address] 09/13/2009 09:29:01 09/14/2009 09:43:32 [id number] Мария Stewart NP , [facility], [address] [place] [address] 06/17/2010 13:23:45 06/19/2010 11:20:26 [id number] CHAVEZ Hays, [facility], [address] [place] [address] 10/28/2011 07:54:13 10/28/2011 09:22:32 [id number] Isidro Wallace MD Radiology , [address] [address] 11/06/2011 11:10:25 11/07/2011 09:08:22 [id number] Tip Loco MD Radiology , [address] [address] 11/20/2011 09:15:05 11/24/2011 08:02:28 [id number] Tip Loco MD Radiology , [address] [address] 11/20/2011 09:17:56 11/24/2011 08:02:36 [id number] Shaun Beverly MD Radiology , [address] [address] 2011 12:21:10 12/09/2011 08:30:11 [id number] Shaun Beverly MD Radiology , [address] [address] 2011 12:21:43 12/09/2011 08:30:49 [id number] JAYDEN Baptiste, [facility], [address] [place] [address] 08/05/2012 10:06:46 08/05/2012 11:11:11 [id number] CHAVEZ Hays , [facility], [address] [place] [address] 11/09/2012 10:47:46 11/09/2012 13:20:44 Mixed hyperlipidemia 696147872 Cholestero l is not at goal Continue to work on diet and exercise as discussed Adult [facility] examination [id number] see Risk Assessment and Lifestyle Change Counseling section above 61 yo F seen for her PHA, HX of hyperlipid emia, needs labs done,mammo gram is UTD, declines to have a colonoscop y-made aware of the risks, & declines to have a flu vaccine [id number] Sobeida Clarke MD , [facility], [address] [place] [address] 03/28/2013 09:43:47 03/28/2013 10:47:37 Dyspnea on exertion 04130554 with history of palpitatio ns and chest pressure [id number] Netta Evans MD , [facility], [address] [place] [address] 05/02/2013 09:40:30 05/03/2013 12:26:39 Dyspnea on exertion 04360610 [id number] CHAVEZ Hays , [facility], [address] [place] [address] 06/15/2013 16:04:35 07/05/2013 10:30:50 Hemorrhoids 28504743 Atrophic vaginitis 26036349 Dyspnea on exertion 85432697 Has had PFT's done, experience s increased SOB w/increase d exertion: running & going up stairs, no CP. Will refe to pulmonolog y for further eval. Agrees w/plan. Benign jing plasm of skin 44214602 Rectal lesion-cry ovac treatment done, jennifer. procedure well, RTC prn [id number] CHAVEZ Hays , [facility], [address] [place] [address] 09/14/2013 10:09:10 09/14/2013 10:51:17 Dropping sensation- pelvic floor [id number] Cystocele vs. prolapse uterus-marbella l refer to Dr. Gardner [id number] SAMINA Alves , [facility], [address] [place] [address] 05/15/2014 14:44:44 05/15/2014 15:34:16 Allergic rhinitis [id number] CHAVEZ Cruz-RALPH , [facility], [address] [place] [address] 10/24/2014 16:03:19 10/24/2014 17:06:58 Gastroesophageal reflux disease [id number] trial omeprazole . follow up in 2 -4 weeks. Health Concerns Section Related Observation LastModified by Organization Detai ls LastModified Time None Recorded Concern Status LastModified by Organization Details LastModified Time None Recorded Advance Directives Directive None Recorded Payers Encounter Date Sequence Insurance Name Policy Number Policy Webster Covered Member ID Webster Member ID Guarantor Name 05/02/2013 1 [facility] - MEDICAID ESSENTIAL (MEDICAID HMO) [id number] Janeth J J Laramie [id number] Janeth J Cyndy 06/15/2013 1 [facility] - MEDICAID ESSENTIAL (MEDICAID HMO) [id number] Janeth J J Cyndy [id number] Janeth J Laramie 09/14/2013 1 [facility] - MEDICAID ESSENTIAL (MEDICAID HMO) [id number] Janeth J J Cyndy [id number] Janeth J Laramie 05/15/2014 1 [facility] - MEDICAID ESSENTIAL (MEDICAID HMO) [id number] Janeth J J Laramie [id number] Janeth J Laramie 10/24/2014 1 [facility] - MEDICAID ESSENTIAL (MEDICAID HMO) [id number] Janeth J J Laramie [id number] Janeth J Laramie Notes Date Note Type Note Provider Name and Address Organization Details Recorded Time 05/02/2013 text/html SOB started real ly being noticeable last month; has been ongoing for quite a while . SOB with any exertion. Feels it is gradually getting worse. 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 no known asthma; Netta Evans MD [address] [place] [address], [phone], [facility] 05/06/2013 12:38:52 06/15/2013 text/html Seen for ? skin tag near her rectum which interferes w/her clothing & when going to [place]. Difficult to keep area clean, wants it removed. CHAVEZ Hays [address] [place] [address], [phone], [facility] 07/05/2013 00:05:16 09/14/2013 text/html Seen for a questionable prolapsed uterus, pain w/intercourse for several months, no vaginal bleeding. Megan Torres, RECYCLE COORDINATOR [address] [place], [phone], [facility] 09/14/2013 10:52:38 05/15/2014 text/html Onset with dry sore throat, then developed cough: dry, no phlegm, any time of day, am, pm. Head has been stuffed. Takes decongestant for a month ~3d/wk. Last dose this am. No fevers. Has had chills. Overall feels crummy, very tired. No GI upset, Eats lots of fruits and veg, little meat. Loss of energy, appetite. SAMINA Alves [address] [place] [address], [phone], [facility] 05/29/2014 14:35:08 10/24/2014 text/html pt developed severe heart burn, noted it worse in the past week, baseline nausea, has abdominal ache, eats produce, endorses bloating and cramping and diarrhea, mother and sister had hiatial hernia. pt notes heart burn x 1.5 weeks. pt has tried serg selzer, sometimes fay-o. milk. Jami Aguilar, RECYCLE COORDINATOR- [address] [place], [phone], [facility] 10/26/2014 18:00:34 OBGyn Episode No OBEpisode recorded.
== END 2024-07-12 10:33 | disposition home or self-care (01) ==
LOC: HO.HMCC 09:31
PROVIDERS: PCP Internal Medicine; Visit Provider Internal Medicine
DX: F41.9 Anxiety disorder, unspecified (principal)

== ENCOUNTER → 2024-07-12 09:30 | Outpatient (BNVA) | payer MEDICARE, SELFPAY | PROVIDERS: PCP Internal Medicine; Visit Provider Internal Medicine | DX: F41.9 Anxiety disorder, unspecified (principal) | CPT/HCPCS: 99212 ==

== ENCOUNTER 2024-08-10 09:14 | Outpatient (AMB) | payer MEDICARE, SELFPAY ==
[2024-08-10 09:19] VITALS: BP 126/76; PULSE 69; RESP 18; TEMP 36.6; O2SAT 99; BMI 23.5
--- NOTE | 2024-08-10 09:19 | A.OFFPC_ITS ---
Vital Signs 08/10/24 09:19 Height 5 ft 5 in Weight 141 lb BMI 23.5 BP 126/76 Blood Pressure Location Lt brachial Position Sitting Respiration 18 Pulse 69 Pulse Source Pulse Oximeter Temp 97.8 F Temp Source Oral Pulse Oximetry (%) 99 Oxygen Delivery Method Room Air Intake Visit Reasons: 1m follow up Intake Note: Pt is here today for 1 month follow up visit. Allergies Sulfa (Sulfonamide Antibiotics) Allergy (Intermediate, Verified 08/10/24 09:20) rash/hives Medication List - Last Reconciled 08/10/24 by Rossana Flower MD atorvastatin 20 mg PO DAILY colestipol 1 g PO DAILY lorazepam 0.5 mg PO DAILY PRN omeprazole 20 mg PO DAILY sertraline (Zoloft) 50 mg PO DAILY Tobacco use date assessed: 08/10/24 Fall risk assessment: No Falls in past year Last assessed Fall Risk: 08/10/24 Dental Screening Dental Screen Date: 08/10/24 Did you have a dental visit in the last 12 months?: Yes Did you have a dental problem in the last 6 months where you did not have access to dental care?: No Was dental information given to patient?: Patient has dentist HPI 1m follow up HPI Details Patient presents for the follow-up of chronic anxiety. She has been taking 25 mg of sertraline and feels slightly better but still having episode of anxiety and fear. She denies insomnia or change in appetite. Patient has been exercising regularly and is planning to start keyur-chi. [facility] Medical History GERD (gastroesophageal reflux disease) Hyperlipidemia Annual physical exam Dysplastic nevi Surgical History Hx of cholecystectomy Family History Father No problems noted. Mother No problems noted. Social History Household Members Other:: , retired, exercise daily, well balanced, Housing: Apartment Patient Tobacco Use Status: Never used Tobacco e-Cigarette/Vaping Use: Never Used Second Hand Smoke Exposure: No service: No Current occupational status: retired Cognitive needs: No Hearing needs: Yes Vision needs: Yes Questionnaire Thrive Questionnaire Date Thrive assessed: 02/26/24 I am a: Patient What is your living situation today?: I have a steady place to live Within the past 12 months, did the food you bought not last and you didn't have the money to get more?: Sometimes True Within the past 12 months, did you worry whether your food would run out before you got money to buy more?: Sometimes True Do you have trouble paying for medicines?: No Do you have trouble getting transportation to medical appointments?: No Do you have trouble paying your heating and electricity bill?: No Do you have trouble taking care of your child, family member or friend?: No Do you have trouble with day-to-day activities such as bathing, preparing meals, shopping, managing finances, etc.?: No Are you currently unemployed and looking for a job?: No Are you interested in more education?: No Please select the resources that you would like help with: Food Currently or been in a relationship where the following occur: No concerns reported THRIVE Score: 2 GEMA-7 AMB Questionnaire GEMA-7 Date GEMA - 7 assessed: 03/03/24 Source: Developed by Drs. Isidro Chaudhari, Lucia Burton, Jez Pan and colleagues, with an educational krystina from [employer]. Review of Systems Const All systems reviewed & are unremarkable except as noted in HPI and below Eyes Reports no additional complaints ENT Reports no additional complaints Card Reports no additional complaints Resp Reports no additional complaints GI Reports no additional complaints Reports no additional complaints Physical exam (Primary Care) Vital Signs: Last Vital Signs Temp 97.8 F 08/10/24 09:19 Pulse 69 08/10/24 09:19 Resp 18 08/10/24 09:19 BP 126/76 08/10/24 09:19 Pulse Ox 99 08/10/24 09:19 Oxygen Delivery Method Room Air 08/10/24 09:19 BMI result Body Mass Index 23.5 Tobacco/Smoking Status: Tobacco use Status Tobacco use date assessed 08/10/24 08/10/24 09:24 Patient Tobacco Use Status Never used Tobacco 08/10/24 09:24 e-Cigarette/Vaping Use Never Used 08/10/24 09:24 Thrive Assessment: Date of Thrive Assessment Date Thrive assessed 02/26/24 08/10/24 09:24 Currently or been in a relationship where the following occur: No concerns reported Const General: no acute distress Eyes General: appearance normal, both eyes and all related structures Resp Effort & Inspection: normal respiratory effort Auscultation: clear to auscultation bilaterally Cardio Rhythm: regular rhythm Heart sounds: S1 normal heart sound present and S2 normal heart sound present Coding Level of Care Code Est Pt Level 3 (51320) Diagnoses Anxiety F41.9 Assessment & Plan Assessment & Plan (1) Anxiety: Code(s): F41.9 - Anxiety disorder, unspecified Category: Medical Plan: Stress management mindfulness discussed with the patient. She will be referred for counseling and sertraline will be increased to 50 mg a day. Follow-up in 1 month Medications: New sertraline (Zoloft) 50 mg PO DAILY 30 tabs 2RF Discontinued sertraline (Zoloft) Discontinued Reason: Doctor's Order 25 mg PO DAILY 30 tabs 2RF
--- OUTSIDE RECORDS SUMMARY | 2024-08-10 09:24 | XMS_ITS | Data Portability ---
Author Organization [facility], , [facility] Address [address] [place] [address] Care Team Providers Care Commercial Front Load Operator Name Role Phone NETTA EVANS Primary Care Provider MEGAN TORRES Primary Care Provider [phone] Assessment No assessment recorded. Plan of Treatment Reminders Order Date Submit Date Provider Last Modified By Organization Details Last Modified Time Details Appointments None recorded. Lab H pylori iga Ab, serum 2014 015 [facility], [address] [place] [address], [address], 5 06:01:14 CBC 2013 014 [facility], [address] [place] [address], [address], 4 14:52:01 thyroid stimulating hormone (TSH) 2013 014 [facility], [address] [place] [address], [address], 4 12:00:44 Referral gynecologis t referral - 62-year-old female with over the floor dysfunction , cystocele versus prolapsed uterus, please evaluate 2013 014 gamal [facility] [employer] [address] [employer] [address] [employer], [address] [place], [address], 4 07:59:[address] referral - 62 yo F w/increased SOB w/exertion: ie: running & going up stairs, no HX of asthma or cardiac disease, no CP, has had PFT's done, please evalaute//a ppt August 11:00 am Pita 2013 014 gamal Lema MD, [address] [place] [address] [place], [address], 4 08:10:28 Procedures None recorded. Surgeries None recorded. Imaging x-ray, chest 2013 014 [facility] (Imaging), [address] [place] [address] [place], [address], 4 12:25:36 Medication Orders omeprazole 20 mg capsule,del ayed release 2014 015 [facility] [address] ([facility]), [address] [place], [place], [id number], 5 18:00:27 Flonase Allergy Relief 50 mcg/actuati on nasal spray,suspe nsion 2014 015 [facility], [address] [place], [id number], 5 16:56:56 Pretty Allergy 180 mg tablet 2014 015 [facility] #42787, [address] [place], [place], [id number], 5 16:56:56 Estrace 0.01% (0.1 mg/gram) vaginal cream 2013 014 [employer] 09885 ([employer] [facility]), [address] [place], [place], [id number], 4 10:25:14 Anusol-HC 25 mg rectal suppository 2013 014 [employer] [address]4470 ([facility]), [address] [place], [place], [id number], 10:25:14 Patient TargetsNo targets recorded. Patient Instructions Encounter Date Encounter Id Patient Instructions Last Modified By Organization Details Last Modified Time 05/02/2013 [id number] pulmonary function test* - dyspnea on exertion, increasing, please eval possible causes. 05/25/13 11:00 no prep. pt aware jdulude Not available 07/15/2013 08:05:43 06/15/2013 [id number] atrophic vaginitis: care instructions Not available 07/05/2013 00:05:03 hemorrhoids: car e instructions Not available 07/05/2013 00:05:03 Reason for Referral 62 yo F w/increased SOB w/ex ertion: ie: running & going up stairs, no HX of asthma or cardiac disease, no CP, has had PFT's done, please evalaute//appt August 11:00 am Pita Referring Physician: Megan Torres [facility], Encounter Date: 06/15/2013 62-year-old female with over the floor dysfunction, cystocele versus prolapsed uterus, please evaluate Referring Physician: Megan Torres [facility], Encounter Date: 09/14/2013 Results Created Date Observation Date Name Description Value Unit Range Abnormal Flag Note LastModifiedBy Organization Detail LastModifiedTime 05/03/19 14 05/02/2013 CBC WBC 3.5 K/ L 4.0-10 .0 low Not Available [address], [address], 05/02/2013 14:52:00 05/03/19 14 05/02/2013 CBC RBC 4.49 M/ L 3.93-5 .22 Not Available [address], [address], 05/02/2013 14:52:00 05/03/19 14 05/02/2013 CBC HGB 13.9 g/dL 11.2-1 5.7 Not Available [address], [address], 05/02/2013 14:52:00 05/03/19 14 05/02/2013 CBC HCT 41.9 % 34.1-4 4.9 Not Available [address], [address], 05/02/2013 14:52:00 05/03/19 14 05/02/2013 CBC MCV 93.3 L 79.4-9 4.8 Not Available [address], [address], 05/02/2013 14:52:00 05/03/19 14 05/02/2013 CBC MCH 31.0 pg 25.6-3 2.2 Not Available [address], [address], 05/02/2013 14:52:00 05/03/19 14 05/02/2013 CBC MCHC 33.2 g/dL 32.2-3 5.5 Not Available [address], [address], 05/02/2013 14:52:00 05/03/19 14 05/02/2013 CBC plt 192.0 K/ L 182.0- 369.0 Not Available [address], [address], 05/02/2013 14:52:00 05/03/19 14 05/02/2013 CBC MPV 12.4 9.4-12 .3 high Not Available [address], [address], 05/02/2013 14:52:00 05/03/19 14 05/02/2013 CBC neut% 52.7 % 34.0-7 1.1 Not Available [address], [address], 05/02/2013 14:52:00 05/03/19 14 05/02/2013 CBC neut# 1.8 1.6-6. 1 Not Available [address], [address], 05/02/2013 14:52:00 05/03/19 14 05/02/2013 CBC lymph % 32.4 % 19.3-5 1.7 Not Available [address], [address], 05/02/2013 14:52:00 05/03/19 14 05/02/2013 CBC lymph # 1.1 K/ L 1.2-3. 7 low Not Available [address], [address], 05/02/2013 14:52:00 05/03/19 14 05/02/2013 CBC mono% 8.9 % 4.7-12 .5 Not Available [address], [address], 05/02/2013 14:52:00 05/03/19 14 05/02/2013 CBC mono# 0.3 0.2-0. 4 Not Available [address], [address], 05/02/2013 14:52:00 05/03/19 14 05/02/2013 CBC eo% 4.9 % 0.7-5. 8 Not Available [address], [address], 05/02/2013 14:52:00 05/03/19 14 05/02/2013 CBC eo# 0.2 0.0-0. 4 Not Available [address], [address], 05/02/2013 14:52:00 05/03/19 14 05/02/2013 CBC baso% 1.1 % 0.1-1. 2 Not Available [address], [address], 05/02/2013 14:52:00 05/03/19 14 05/02/2013 CBC baso# 0.0 0.0-0. 1 low Not Available [address], [address], 05/02/2013 14:52:00 05/03/19 14 05/02/2013 CBC RDW-CV 12.8 % 11.7-1 4.4 Not Available [address], [address], 05/02/2013 14:52:00 05/03/19 14 05/03/2013 thyro id stimu latin g hormo ne (TSH) TSH 1.20 uIU/m L 0.50-6 .00 the ameri can colle ge of endoc rinol ogy and ameri can thyro id assoc iatio n recom mend goal TSH value s betwe en 1.0-2 .5 mIU/m L. Not Available [address], [address], 05/03/2013 12:00:43 05/04/19 14 05/10/2013 fecal globi n immun ochem ical test ifobt NEGATI VE negati ve Not Available [address], [address], 05/10/2013 14:41:24 05/05/19 14 05/10/2013 fecal globi n immun ochem ical test ifobt NEGATI VE negati ve Not Available [address], [address], 05/10/2013 14:41:27 05/06/19 14 05/10/2013 fecal globi n immun ochem ical test ifobt NEGATI VE negati ve Not Available [address], [address], 05/10/2013 14:41:28 10/27/19 15 10/26/2014 lipid panel , serum cholesterol 235 mg/dL <200 mg/dl Megan able 200-2 39 mg/dl Borde rline High >240 mg/dl High Not Available [address], [address], 10/26/2014 13:34:49 10/27/19 15 10/26/2014 lipid panel , serum triglyceride s 102 mg/dL <150 mg/dL Gisell l 150-1 99 mg/dL Borde rline High 200-4 99 mg/dL High >500 mg/dL Very High Not Available [address], [address], 10/26/2014 13:34:49 10/27/19 15 10/26/2014 lipid panel , serum direct HDL 60 mg/dL Not Available [address], [address], 10/26/2014 13:34:49 10/27/19 15 10/26/2014 LDL, direc t, serum direct LDL 152 mg/dL RISK CATEG ORY LDL GOAL _ CHD or CHD Risk Equiv alent s <100 mg/dl (10-y ear risk >20%) 2+ Risk Facto rs <130 mg/dl (10-y ear risk <= 20%) 0-1 Risk Facto r <160 mg/dl Almo st all peopl e with 0-1 risk facto r have a 10 year risk <10%, thus 10 year risk asses ment in peopl e with 0-1 risk facto r is not neces zeferino. Not Available [address], [address], 10/26/2014 13:34:50 10/27/19 15 11/03/2014 H pylor i iga Ab, serum helicobacter pylori Ab (IgA), immunoblot NEGATI VE Effec tive Octob er 2014 Helic obact er(H) pylor i antib rene testi ng will no longe r be offer ed at [facility] swathi s. We are pleas ed to offer [facility] and AGA recom sari d testi ng for ACTIV E infec tion with eithe r H. pylor i Stool Antig en (test code 92533 [X]) or H. pylor i Urea Breat h Test (1483 9[X] for adult patie nts and 51639 for pedia tric patie nts). For more infor rosangela weber on testi ng for ACTIV E H. pylor i infec tion, pleas e see http: //aure weber.que stdia gnost ics.c om/in sight s/61. Not Available [facility] [address] [place], [place], [address], 11/03/2014 06:01:14 05/03/19 14 04/12/2013 exerc ise stres s test No observ ation record ed. [email or web address] [facility] [address] [facility], [place], [address], 05/03/2013 09:12:05 05/03/19 14 05/02/2013 x-ray , chest OBSERV ATION: PA AND LATERA L CHEST: Histor y: Shortn ess of breath No active lung or pleura l diseas e is seen. The heart and medias tinal contou rs appear normal . Thorac ic scolio sis convex right. Impres nickie: Normal chest radiog raph. Electr onical ly signed Readin veronique Physic rafa: Tip Loco MD [facility] (Imaging) [address] , [place], [address], 01/17/2015 04:00:20 05/10/19 14 04/12/2013 imagi ng/di [...] Address Organization Details Recorded Time Allergic rhinitis 52685453 Active SAMINA Alves [address] [place] [address], [address] , [facility] 5 15:25:16 Varicose veins of lower extremity 04303678 Active 2001 Not Available [facility] 3 03:06:43 Nausea 735304488 Completed 200312/29/2012 Not Available [facility] 3 02:03:39 Abnormal findings on diagnostic imaging of breast 629917195 Active Not Available [facility] 3 03:06:43 Senile hyperkerat osis 686644303 Active Not Available [facility] 3 03:06:43 Right upper quadrant pain 898834710 Completed 200312/29/2012 Not Available [facility] 3 02:03:18 Generalize d anxiety disorder 50207816 Active 2007 Not Available [facility] 3 03:06:43 Insomnia 622446718 Active 2007 Not Available [facility] 3 03:06:43 Central hearing loss 16499083 Active 2001 Netta Evans MD [address] [place] [address], [address] [place] [address] 5 11:04:34 Pure hyperchole sterolemia 989211057 Active 2005 Olga jean baptiste, [facility] 5 11:26:35 Osteoarthr itis 872223161 Active 2006 Not Available [facility] 3 03:06:43 Disease of liver 352632101 Active 2003 Not Available [facility] 3 03:06:43 Mammograph y abnormal 058642392 Active 2003 Not Available [facility] 3 03:06:43 Pain of joint of hand 458915991 Completed 200112/29/2012 Not Available [facility] 3 02:02:43 On examinatio n - a rash Completed 12/29/2012 Not Available [facility] 3 02:00:45 Blood chemistry outside reference range 578155552 Completed 12/29/2012 Not Available [facility] 3 02:03:30 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 Procedures Surgical History Date Name Laterality Status Provider Name and Address Organization Details Recorded Time 4 Destruction of skin lesion completed CHAVEZ Hays [address] [place], [address], [facility] 06/15/2013 17:21:33 1 Wart completed Мария Stewart NP [address] [place], [address], [facility] 06/17/2010 16:26:17 0 Treatment and Advice completed Dante Swenson, PT [address] [place], [address], [facility] 09/14/2009 07:25:53 Imaging Results None recorded. Procedure Notes None recorded. Medical Equipment None Reported. Allergies Allergen ID Allergen Name Allergen Category Reaction Reaction Severity Criticality Documentation Date Start Date Code Code System Note Provider Name and Address Organization Details Recorded Time 86086 Substance with sulfonami de structure and antibacte rial mechanism of action (substanc e) medicatio n Not available Not available Not available 08/31/2009 06549 8003 SNOMED Not Available [facility] 1 06:05:41 Medications Name Sig Start Date [...] Details Last Updated DateTime 4 165.1 cm 26993.9 39676 g 22.9 kg/m2 66 /min 120 mm[Hg] 74 mm[Hg] Hany Alvarado [facility] 4 10:24:59 Date Recorded Oxygen saturation Oxygen saturation in Arterial blood by Pulse oximetry Body weight Body mass index (BMI) Body height Body temperature Systolic blood pressure Diastolic blood pressure Provider Name and Address Organization Details Last Updated DateTime 5 96 % 96 % 37818.5 76651 g 22.2 kg/m2 165.1 cm 98.2 [degF] 110 mm[Hg] 66 mm[Hg] Lazaro Cottrell [facility] 5 15:06:39 Date Recorded Body height Body mass index (BMI) Body weight Heart rate Systolic blood pressure Diastolic blood pressure Provider Name and Address Organization Details Last Updated DateTime 4 165.1 cm 23 kg/m2 43058.7 4706 g 72 /min 128 mm[Hg] 80 mm[Hg] Liliana Delgadillo MA [facility] 4 16:13:55 Date Recorded Body height Body mass index (BMI) Body weight Systolic blood pressure Diastolic blood pressure Provider Name and Address Organization Details Last Updated DateTime 09/14/2013 165.1 cm 22.7 kg/m2 91596.61 0889 g 98 mm[Hg] 62 mm[Hg] Juliana Granados MA [facility] 4 10:27:35 Date Recorded Body weight Body height Body mass index (BMI) Heart rate Systolic blood pressure Diastolic blood pressure Provider Name and Address Organization Details Last Updated DateTime 5 42279.1 54717 g 165.1 cm 23.2 kg/m2 64 /min 102 mm[Hg] 70 mm[Hg] Sylvie Estevez LPN [facility] 5 16:48:40 Social History Question Answer Notes LastModified by [employer] ion Details LastModified Time Tobacco Smoking Status Never Smoker Not Available [facility] 12/26/2010 04:52:47 What Is Your Level Of [...] available 10/24/2014 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 Information n ot available 12/26/2010 Mental Status [...] B, unspecified formulation 1 completed Not Available [facility] 12/25/2010 05:20:34 Past Encounters Encounter ID Performer Location Encounter Start Date Encounter Closed Date Diagnosis/Indication Diagnosis SNOMED-CT Code Diagnosis ICD10 Code Diagnosis Note [id number] SAMINA Alves , [facility], OFFICE [address] [place] [address] 07/29/2000 10:45:00 03/01/2008 02:02:29 [id number] FP TREATMENT NURSE [facility], OFFICE [address] [place] [address] 07/31/2000 14:00:00 03/01/2008 02:02:29 [id number] FP TREATMENT NURSE [facility], OFFICE [address] [place] [address] 08/31/2000 09:30:00 03/01/2008 02:02:29 [id number] MD SIM Gomez [facility], OFFICE [address] [place] [address] 04/29/2001 11:15:00 03/01/2008 02:02:29 [id number] JAYDEN Baptiste, [facility], OFFICE [address] [place] [address] 11/12/2001 10:17:26 03/01/2008 02:02:29 [id number] Annalisa Kellogg NP , [facility], OFFICE [address] [place] [address] 02/07/2002 11:26:49 03/01/2008 02:02:29 [id number] MD SIM Gomez, [facility], OFFICE [address] [place] [address] 06/28/2003 08:37:40 06/28/2003 12:04:40 [id number] [facility] - [facility] [address] [place] [address] 07/07/2003 13:53:04 07/07/2003 13:53:[id number] [facility] Radiology , [facility] [address] [place] [address] 07/24/2003 08:40:06 07/25/2003 09:26:[id number] [facility] Radiology , [facility] [address] [place] [address] 08/29/2003 12:34:06 08/30/2003 12:18:43 [id number] [facility] RN [employer] Radiology , [address] [address] 08/29/2003 14:13:20 09/01/2003 08:21:13 [id number] [facility] - [address] [address] 10/17/2003 12:08:45 10/17/2003 13:08:57 [id number] MD SIM Gomez, [facility], OFFICE [address] [place] [address] 10/17/2003 11:30:03 10/18/2003 13:14:30 [id number] [facility] , [facility] [address] [place] [address] 10/20/2003 07:18:05 10/20/2003 15:52:37 [id number] [facility] - [address] [address] 10/23/2003 09:51:08 10/23/2003 10:38:59 [id number] MD SIM Gomez, [facility], OFFICE [address] [place] [address] 07/05/2004 14:23:11 07/05/2004 17:11:03 [id number] [facility] - [address] [address] 07/15/2005 13:16:43 07/15/2005 13:16:57 [id number] JAYDEN Baptiste, [facility], OFFICE [address] [place] [address] 07/24/2005 13:23:08 03/01/2008 02:02:29 [id number] Flavia Mcgill MD , [facility], OFFICE [address] [place] [address] 09/05/2005 10:02:22 09/05/2005 11:56:15 [id number] [facility] - [facility] [address] [place] [address] 09/12/2005 07:38:38 09/12/2005 07:38:42 [id number] [facility] LAB LAB - [address] [place] [address] 09/15/2005 12:54:04 09/15/2005 12:54:15 [id number] [facility] , [facility] [address] [place] [address] 10/23/2005 13:18:47 03/01/2008 02:02:29 [id number] MD SIM Harvey, [facility], OFFICE [address] [place] [address] 06/19/2006 13:25:47 06/19/2006 16:56:47 [id number] Flavia Mcgill MD , [facility], OFFICE [address] [place] [address] 10/20/2006 10:11:07 10/26/2006 10:51:00 [id number] Donny Martins MD , [facility], OFFICE [address] [place] [address] 11/12/2007 10:26:09 03/01/2008 02:02:29 [id number] [facility] , [facility] [address] [place] [address] 01/04/2008 11:02:21 01/05/2008 09:21:53 [id number] SAMINA Alves, [facility], OFFICE [address] [place] [address] 08/31/2009 09:00:28 09/17/2009 12:00:43 [id number] [facility] RADIOLOG[facility] Radiology , [facility] [address] [place] [address] 08/31/2009 09:48:31 09/03/2009 13:20:38 [id number] Dante Swenson , PT Physical Therapy, [address] [address] 09/13/2009 09:29:01 09/14/2009 09:43:32 [id number] Мария Stewart NP , [facility], [address]ICE [address] [place] [address] 06/17/2010 13:23:45 06/19/2010 11:20:26 [id number] CHAVEZ Hays, [facility], OFFICE [address] [place] [address] 10/28/2011 07:54:13 10/28/2011 09:22:32 [id number] Isidro Wallace MD Radiology , [facility] [address] [place] [address] 11/06/2011 11:10:25 11/07/2011 09:08:22 [id number] Tip Loco MD Radiology , [address] [address] 11/20/2011 09:15:05 11/24/2011 08:02:28 [id number] Tip Loco MD Radiology , [address] [address] 11/20/2011 09:17:56 11/24/2011 08:02:36 [id number] Shaun Beverly MD Radiology , [address] [address] 2011 12:21:10 12/09/2011 08:30:11 [id number] Shaun Beverly MD Radiology , [address] [address] 2011 12:21:43 12/09/2011 08:30:49 [id number] JAYDEN Baptiste, [facility], OFFICE [address] [place] [address] 08/05/2012 10:06:46 08/05/2012 11:11:11 [id number] CHAVEZ Hays , [facility], OFFICE [address] [place] [address] 11/09/2012 10:47:46 11/09/2012 13:20:44 Mixed hyperlipidemia 534442259 Cholestero l is not at goal Continue to work on diet and exercise as discussed Adult [facility] th examination [id number] see Risk Assessment and Lifestyle Change Counseling section above 61 yo F seen for her PHA, HX of hyperlipid emia, needs labs done,mammo gram is UTD, declines to have a colonoscop y-made aware of the risks, & declines to have a flu vaccine [id number] Sobeida Clarke MD , [facility], OFFICE [address] [place] [address] 03/28/2013 09:43:47 03/28/2013 10:47:37 Dyspnea on exertion 61142884 with history of palpitatio ns and chest pressure [id number] Netta Evans MD , [facility], OFFICE [address] [place] [address] 05/02/2013 09:40:30 05/03/2013 12:26:39 Dyspnea on exertion 68017966 [id number] CHAVEZ Hays , [facility], OFFICE [address] [place] [address] 06/15/2013 16:04:35 07/05/2013 10:30:50 Hemorrhoids 12635452 Atrophic vaginitis 88528450 Dyspnea on exertion 93894715 Has had PFT's done, experience s increased SOB w/increase d exertion: running & going up stairs, no CP. Will refe to pulmonolog y for further eval. Agrees w/plan. Benign jing plasm of skin 40072485 Rectal lesion-cry ovac treatment done, jennifer. procedure well, RTC prn [id number] CHAVEZ Hays , [facility], OFFICE [address] [place] [address] 09/14/2013 10:09:10 09/14/2013 10:51:17 Dropping sensation- pelvic floor 337386914 Cystocele vs. prolapse uterus-marbella l refer to Dr. Gardner [id number] SAMINA Alves , [facility], OFFICE [address] [place] [address] 05/15/2014 14:44:44 05/15/2014 15:34:16 Allergic rhinitis 46798442 [id number] CHAVEZ Cruz-RALPH , [facility], OFFICE [address] [place] [address] 10/24/2014 16:03:19 10/24/2014 17:06:58 Gastroesophageal reflux disease 300416031 trial omeprazole . follow up in 2 -4 weeks. Health Concerns Section Related Observation LastModified by Organization Detai ls LastModified Time None Recorded Concern Status LastModified by Organization Details LastModified Time None Recorded Advance Directives Directive None Recorded Payers Insurance Date Sequence Insurance Name Policy Number Policy Webster Covered Member ID Webster Member ID Guarantor Name 02/07/2002 1 *SELF PAY* Alayna steele Cecilia Cyndy 12/19/2020 [facility] A Janeth Brooks Cyndy [id number] Janeth Brooks [place] 07/29/2000 1 *SELF PAY* Alayna steele Cecilia Ashuelot 12/19/2020 1 [facility] [employer] 105 Janeth Cecilia Cyndy [id number] Janeth Brooks Ashuelot 11/12/2007 1 [facility] [id number] Ben Resendizomis [id number] Janeth Cecilia Cyndy 12/19/2020 1 [facility] [id number] Janeth Brooks Cynyd [id number] Janeth Cecilia Cyndy 12/19/2020 1 [facility] COMMUNITY [facility] (HMO) [id number] Janeth Brooks Ashuelot [id number] Janeth Cecilia Ashuelot 12/19/2020 1 [facility] [id number] Janeth J Ashuelot [id number] Janeth Cecilia Ashuelot 12/19/2020 1 [facility] - MEDICAID ESSENTIAL (MEDICAID HMO) [id number] Janeth J J Cyndy [id number] Janeth Brooks Cyndy Notes Date Note Type Note Provider Name and Address Organization Details Recorded Time 05/02/2013 text/html SOB started real ly being noticeable last month; has been ongoing for quite a while . SOB with any exertion. Feels it is gradually getting worse. Smoked as a teengaer approx 1 pack in life; non-smoker; no asbestos exposure; lives in [place] ([place]). no known asthma; Netta Evans MD [address] [place] [address], [address], [facility] 05/06/2013 12:38:52 06/15/2013 text/html Seen for ? skin tag near her rectum which interferes w/her clothing & when going to [place]. Difficult to keep area clean, wants it removed. CHAVEZ Hays [address] [place], [address], [facility] 07/05/2013 00:05:16 09/14/2013 text/html Seen for a questionable prolapsed uterus, pain w/intercourse for several months, no vaginal bleeding. CHAVEZ Hays [address] [place], [address], [facility] 09/14/2013 10:52:38 05/15/2014 text/html Onset with dry sore throat, then developed cough: dry, no phlegm, any time of day, am, pm. Head has been stuffed. Takes decongestant for a month ~3d/wk. Last dose this am. No fevers. Has had chills. Overall feels crummy, very tired. No GI upset, Eats lots of fruits and veg, little meat. Loss of energy, appetite. SAMINA Alves [address] [place] [address], [address], [facility] 05/29/2014 14:35:08 10/24/2014 text/html pt developed severe heart burn, noted it worse in the past week, baseline nausea, has abdominal ache, eats produce, endorses bloating and cramping and diarrhea, mother and sister had hiatial hernia. pt notes heart burn x 1.5 weeks. pt has tried serg selzer, sometimes fay-o. milk. Jami Aguilar, CHAVEZ-RALPH [address] [place], [address], [facility] 10/26/2014 18:00:34 OBGyn Episode No OBEpisode recorded.
== END 2024-08-10 10:14 | disposition home or self-care (01) ==
LOC: HO.HMCC 09:15
PROVIDERS: PCP Internal Medicine; Visit Provider Internal Medicine
DX: F41.9 Anxiety disorder, unspecified (principal)

== ENCOUNTER → 2024-08-10 09:14 | Outpatient (BNVA) | payer MEDICARE, SELFPAY | PROVIDERS: PCP Internal Medicine; Visit Provider Internal Medicine | DX: F41.9 Anxiety disorder, unspecified (principal) | CPT/HCPCS: 99212 ==

== ENCOUNTER 2024-09-12 09:18 | Outpatient (AMB) | payer MEDICARE, SELFPAY ==
[2024-09-12 09:54] VITALS: BP 124/72; PULSE 69; RESP 18; TEMP 36.6; O2SAT 97; BMI 23.5
--- NOTE | 2024-09-12 09:54 | MHC.PC.OV ---
Vital Signs 09/12/24 09:54 Height 5 ft 5 in Weight 141 lb BMI 23.5 BP 124/72 Blood Pressure Location Lt brachial Position Sitting Respiration 18 Pulse 69 Pulse Source Pulse Oximeter Temp 97.9 F Temp Source Oral Pulse Oximetry (%) 97 Oxygen Delivery Method Room Air Intake Visit Reasons: 1 month follow up Intake Note: Pt is here today for 1 month follow up visit. Allergies Sulfa (Sulfonamide Antibiotics) Allergy (Intermediate, Verified 09/12/24 09:55) rash/hives Medication List - Last Reconciled 09/12/24 by Rossana Flower MD atorvastatin 20 mg PO DAILY colestipol 1 g PO DAILY lorazepam 0.5 mg PO DAILY PRN omeprazole 20 mg PO DAILY sertraline (Zoloft) 25 mg PO DAILY Tobacco use date assessed: 09/12/24 Fall risk assessment: No Falls in past year Last assessed Fall Risk: 09/12/24 Dental Screening Dental Screen Date: 08/10/24 HPI 1 month follow up HPI Details Patient presents for the follow-up on hyperlipidemia and chronic anxiety improved on sertraline. [facility] Medical History (Updated 09/12/24 @ 16:18 by Rossana Flower MD) Anxiety GERD (gastroesophageal reflux disease) Hyperlipidemia Annual physical exam Dysplastic nevi Surgical History Hx of cholecystectomy Family History Father No problems noted. Mother No problems noted. Social History Household Members Other:: , retired, exercise daily, well balanced, Housing: Apartment Patient Tobacco Use Status: Never used Tobacco e-Cigarette/Vaping Use: Never Used Second Hand Smoke Exposure: No service: No Current occupational status: retired Cognitive needs: No Hearing needs: Yes Vision needs: Yes Questionnaire Thrive Questionnaire Date Thrive assessed: 02/26/24 I am a: Patient What is your living situation today?: I have a steady place to live Within the past 12 months, did the food you bought not last and you didn't have the money to get more?: Sometimes True Within the past 12 months, did you worry whether your food would run out before you got money to buy more?: Sometimes True Do you have trouble paying for medicines?: No Do you have trouble getting transportation to medical appointments?: No Do you have trouble paying your heating and electricity bill?: No Do you have trouble taking care of your child, family member or friend?: No Do you have trouble with day-to-day activities such as bathing, preparing meals, shopping, managing finances, etc.?: No Are you currently unemployed and looking for a job?: No Are you interested in more education?: No Please select the resources that you would like help with: Food Currently or been in a relationship where the following occur: No concerns reported THRIVE Score: 2 GEMA-7 AMB Questionnaire GEMA-7 Date GEMA - 7 assessed: 03/03/24 Source: Developed by Drs. Isidro Chuadhari, Lucia Burton, Jez Pan and colleagues, with an educational krystina from [employer]. Review of Systems Const All systems reviewed & are unremarkable except as noted in HPI and below ENT Reports no additional complaints Card Reports no additional complaints Resp Reports no additional complaints GI Reports no additional complaints Reports no additional complaints Physical exam (Primary Care) Vital Signs: Last Vital Signs Temp 97.9 F 09/12/24 09:54 Pulse 69 09/12/24 09:54 Resp 18 09/12/24 09:54 BP 124/72 09/12/24 09:54 Pulse Ox 97 09/12/24 09:54 Oxygen Delivery Method Room Air 09/12/24 09:54 BMI result Body Mass Index 23.5 Tobacco/Smoking Status: Tobacco use Status Tobacco use date assessed 09/12/24 09/12/24 09:59 Patient Tobacco Use Status Never used Tobacco 09/12/24 09:59 e-Cigarette/Vaping Use Never Used 09/12/24 09:59 Thrive Assessment: Date of Thrive Assessment Date Thrive assessed 02/26/24 09/12/24 09:59 Currently or been in a relationship where the following occur: No concerns reported Const General: no acute distress HENMT Head: Yes normal to inspection Mouth: Normal oral and palatal mucosa present Resp Effort & Inspection: normal respiratory effort Auscultation: clear to auscultation bilaterally Cardio Rhythm: regular rhythm Heart sounds: S1 normal heart sound present and S2 normal heart sound present GI Inspection: Yes normal to inspection Coding Level of Care Code Est Pt Level 4 (08289) Diagnoses Anxiety F41.9 Hyperlipidemia E78.5 Assessment & Plan Assessment & Plan (1) Anxiety: Comment: Improved on sertraline Code(s): F41.9 - Anxiety disorder, unspecified Category: Medical Plan: Continue sertraline (2) Hyperlipidemia: Comment: Continue statin Code(s): E78.5 - Hyperlipidemia, unspecified Category: Medical Plan: Continue statin Medications: Changed From sertraline (Zoloft) 25 mg PO DAILY To sertraline (Zoloft) 50 mg PO DAILY 90 tabs 0RF
== END 2024-09-12 12:33 | disposition home or self-care (01) ==
LOC: HO.HMCC 09:19
PROVIDERS: PCP Internal Medicine; Visit Provider Internal Medicine
DX: F41.9 Anxiety disorder, unspecified (principal); E78.5 Hyperlipidemia, unspecified

== ENCOUNTER → 2024-09-12 09:18 | Outpatient (BNVA) | payer MEDICARE, SELFPAY | PROVIDERS: PCP Internal Medicine; Visit Provider Internal Medicine | DX: F41.9 Anxiety disorder, unspecified (principal); E78.5 Hyperlipidemia, unspecified | CPT/HCPCS: 99212 ==